=== PATIENT | female | born 2000 | race Caucasian/White ===

== ENCOUNTER 2025-01-05 08:50 | Outpatient (OUT) | payer BC, SELFPAY ==
--- OUTSIDE RECORDS SUMMARY | 2024-12-29 12:30 | XMS_ITS | Encounter Summary ---
Author Organization [facility] Address [address] [place] [address] Care Team Providers Care Window Clerk Name Role Phone Judi Jeffrey MD Primary Care Provider Encounter Details DateTypeDepartmentCare Team (Latest Contact Info)Loixyqxrazl97/23/2025 12:30 PM EDTAncillary Procedure [facility] [address] [place] [address] [place] [address] Missed menses; Positive urine test ([facility]) Social History Tobacco UseTypesPacks/DayYears UsedDateSmoking Tobacco: NeverSmokeless Tobacco: NeverAlcohol UseStandard Drinks/WeekCommentsYes0 (1 standard drink = 0.6 oz pure alcohol)3 or 4 drinks a monthHumiliation, Afraid, Rape, and Kick questionnaire AnswerDate RecordedWithin the last year, have you been afraid of your partner or ex-partner?No08/19/2022Within the last year, have you been humiliated or emotionally abused in other ways by your partner or ex-partner?No08/19/2022 Within the last year, have you been kicked, hit, slapped, or otherwise physically hurt by your partner or ex-partner?No08/19/2022Within the last year, have you been raped or forced to have any kind of sexual activity by your part ner or ex-partner?No08/19/2022Social Connection and Isolation PanelAnswerDate RecordedIn a typical week, how many times do you talk on the phone with family, friends, or neighbors?More than three times a week08/19/2022How often do you get together with friends or relatives?More than three times a week08/19/2022How often do you attend yazdanism or episcopalian services?1 to 4 times per year08/19/2022 Do you belong to any clubs or organizations such as yazdanism groups, unions, fraternal or athletic groups, or school groups?Yes08/19/2022How often do you attend meetings of the clubs or organizations you belong to?More than 4 times per year08/19/2022re you , , , , never , or living with a partner?Patient oiaxwogl49/13/2023UDIT-CAnswerDate RecordedQ1: How often do you have a drink containing alcohol?2-4 times a month08/19/2022Q2: How many drinks containing alcohol do you have on a typical day when you are drinking?1 or Q3: How often do you have six or more drinks on one occasion?Less than lcvwkjm3208/19/2022Overall Financial Resource Strain (CARDIA) AnswerDate RecordedHow hard is it for you to pay for the very basics like food, housing, medical care, and heating?Not hard at all08/19/2022HQ-2AnswerDate RecordedPatient Health Questionnaire-2 Djond270[facility] [place] of Occupational Health - Occupational Stress QuestionnaireAnswerDate RecordedDo you feel stress - tense, restless, nervous, or anxious, or unable to sleep at night because yourmind is troubled all the time - these days?To some robefy3408/19/2022 Exercise Vital SignAnswerDate RecordedOn average, how many days per week do you engage in moderate to strenuous exercise (like a brisk walk)?4 days08/19/2022On average, how many minutes do you engage in exercise at this level?40 min 08/19/2022Hunger Vital SignAnswerDate RecordedWithin the past 12 months, you worried that your food would run out before you got the money to buymore.Never true08/19/2022Within the past 12 months, the food you bought just didn't last and you didn't have money to get more.Never true08/19/2022RAPARE - TransportationAnswerDate RecordedIn the past 12 months, has lack of transportation kept you from medical appointments or from getting medications?No 08/19/2022In the past 12 months, has lack of transportation kept you from meetings, work, or from getting things needed for daily living?No08/19/2022 Housing Stability Vital SignAnswerDate RecordedIn the last 12 months, was there a time when you were not able to pay the mortgage or rent on time?No08/19/2022In the last 12 months, how many places have you lived?In the last 12 months, was there a time when you did not have a steady place to sleep or slept in ashelter (including now)?No08/19/2022EducationAnswerDate RecordedWhat is the highest level of school you have completed or the highest degree you have received?10th grade07/16/2022Estimated Date of DeliveryCommentsYes 6Based on Ultrasound, FHR- 153Sex and Gender InformationValueDate RecordedSex Assigned at BirthNot on fileLegal JxsJfotrk18/15/2023 7:46 PM EDT Gender IdentityNot on fileSexual OrientationNot on filedocumented as of this encounter Plan of Treatment DateTypeDepartmentCare Team (Latest Contact Info)Jnshwylgatd73/24/2025 9:50 AM ESTRoutine NOMAyesha PHAN [address] [place] [phone] Rainer Olivo, DO [address] [facility] [place] [address] 02/27/2025 8:40 AM ESTRoutine NOMAyesha PHAN [address] [place] [phone] Rainer Olivo, [address] [facility] [facility] [address] [place], [place] [phone] 03/01/2025 10:00 AM ESTOffice Visit [facility] [address] [place] [facility] [place] [phone] Soledad Foreman NP [address] [place], [place] [phone] documented as of this encounter Procedures Procedure NamePriorityDate/TimeAssociated DiagnosisCommentsUS OB TRANSVAGINAL Smtpktq3412/29/2024 12:48 PM EDT Missed menses Positive urine test ([facility]) documented in this encounter Results * US OB transvaginal (12/29/2024 12:48 PM EDT)Anatomical RegionLaterality ModalityBodyUltrasoundSpecimen (Source)Anatomical Location / Laterality Collection Method / VolumeCollection TimeReceived Time12/29/2024 3:28 PM EDT Impressions 12/30/2024 7:26 AM EDT Findings consistent with a live intrauterine gestation, current sonographic age of 7 weeks and 4 days resulting in an estimated date of delivery of August 13, 2025 ?? TRANSCRIBED BY: ? ELECTRONICALLY SIGNED BY: Eduardo Sin MD Narrative 12/30/2024 7:26 AM EDT FINDINGS: A single intrauterine gestational sac is present. ??No subchorionic hemorrhage. ??A single pole is present. Normal heart rate at 153 beats per minute. ??Yolk sac also is seen. ?? Current sonographic age is 7 weeks and 4 days based on the crown-rump length measurement of 13mm. ??Based onthis age, current estimated date of delivery is ??August 13, 2025. ??No pelvic fluid or adnexal mass present. ??Cervix ??closed length is 3.8 cm. Procedure Note Eduardo Sin MD - 12/30/2024 FINDINGS: A single intrauterine gestational sac is present. No subchorionichemorrhage. A single pole is present. Normal heart rate at153 beats per minute. Yolk sac also is seen. Current sonographic age is7 weeks and 4 days based on the crown-rump length measurement of 13mm.Based on this age, current estimated date of delivery is August 13, 2025.No pelvic fluid or adnexal mass present. Cervix closed length is 3.8cm. IMPRESSION: Findings consistent with a live intrauterine gestation, currentsonographic age of 7 weeks and 4 days resulting in an estimated date ofdelivery of August 13, 2025 TRANSCRIBED BY: ELECTRONICALLY SIGNED BY: Eduardo Sin MD Authorizing ProviderResult TypeResult StatusCorey Geovani DOIMG OB US PROCEDURES Final Result documented in this encounter Visit Diagnoses Diagnosis Missed menses Positive urine test ([facility]) documented in this encounter Additional Health Concerns AssessmentNoted TimePHQ-9 Depression Total Score: 6011/21/2024 8:00 AM EDT documented as of this encounter Care Teams Team MemberRelationshipSpecialtyStart DateEnd Date Judi Jeffrey MD [address] [place] [address] PCP - GeneralFamily Medicine07/24/22documented as of this encounter
--- OUTSIDE RECORDS SUMMARY | 2024-12-29 13:00 | XMS_ITS | Encounter Summary ---
Author Organization [facility] Address [address] [place] [address] Care Team Providers Care Financial Professional Name Role Phone Judi Jeffrey MD Primary Care Provider [phone] Reason for Visit * ReasonCommentsAmenorrhea Encounter Details DateTypeDepartmentCare Team (Latest Contact Info)Txhodjhmlsm84/23/2025 1:00 PM EDTInitial [facility] [address] [place] [address] [place] [phone] GA: 7w4d Social History Tobacco UseTypesPacks/DayYears UsedDateSmoking Tobacco: NeverSmokeless [...] times a week08/19/2022How often do you attend religious or restorationist services?1 to 4 times per year08/19/2022 Do you belong to any clubs or organizations such as religious groups, unions, fraternal or athletic groups, or school groups?Yes08/19/2022How often do you attend meetings of the clubs or organizations you belong to?More than 4 times per year08/19/2022re you , , , , never , or living with a partner?Patient gbtxsnoh17/13/2023UDIT-CAnswerDate RecordedQ1: How often do you have a drink containing alcohol?2-4 times a month08/19/2022Q2: How many drinks containing alcohol do you have on a typical day when you are drinking?1 or Q3: How often do you have six or more drinks on one occasion?Less than rrbzfvz9808/19/2022Overall Financial Resource Strain (CARDIA) AnswerDate RecordedHow hard is it for you to pay for the very basics like food, housing, medical care, and heating?Not hard at all08/19/2022HQ-2AnswerDate RecordedPatient Health Questionnaire-2 Xkmsr461Finmoab regional hospital [place] of Occupational Health - Occupational Stress QuestionnaireAnswerDate RecordedDo you feel stress - tense, restless, nervous, or anxious, or unable to sleep at night because yourmind is troubled all the time - these days?To some iowdct0708/19/2022 Exercise Vital SignAnswerDate RecordedOn average, how many [...] you have received?10th grade07/16/2022Estimated Date of DeliveryCommentsYes 08/13/2025ased on Ultrasound, FHR- 153Sex and Gender InformationValueDate RecordedSex Assigned at BirthNot on fileLegal IuzKkujhh32/15/2023 7:46 PM EDT Gender IdentityNot on fileSexual OrientationNot on filedocumented as of this encounter Last Filed Vital Signs Vital SignReadingTime TakenCommentsBlood Jmelmaes292/7010 1:22 PM EDT Pulse--Temperature--Respiratory Rate--Oxygen Saturation--Inhaled Oxygen Concentration--Kmjlsz081 kg (245 lb 9.6 oz)12/29/2024 1:22 PM EDTHeight--Body Mass Index36.2709 8:04 AM EDTdocumented in this encounter Progress Notes * Vanessa Neff LPN - 12/29/2024 1:00 PM EDT Reason for Appointment: Patient ID: Lindy Sam is a 24 y.o. female who presents for Amenorrhea Patient presents today for a Nurse OB Intake appointment. Patient is 7w4d with a Estimated Date of Delivery: 08/13/25 OB History Para Term AB Living 1 0 0 0 0 0 SAB IAB Ectopic Multiple Live Births 0 0 0 0 0 # Outcome Date GA Lbr Anam/2nd Weight Sex Type Anes PTL Lv 1 Current Current Medications: has a current medication list which includes the following prescription(s): flonase allergy relief,ondansetron odt, and sertraline. Medical History: Active Ambulatory Problems Diagnosis Date Noted Adjustment disorder with depressed mood 07/09/2022 Allergic rhinitis due to allergen 07/09/2022 Allergic rhinitis due to animal (cat) (dog) hair and dander 07/09/2022 Anxiety 07/09/2022 Dysmenorrhea 07/09/2022 Sinusitis 07/09/2022 Iron deficiency anemia 07/09/2022 Irregular menses 07/09/2022 Menstrual cramps 07/09/2022 Menstrual migraine without status migrainosus, not intractable 07/09/2022 Orthostatic hypotension 07/09/2022 Patellofemoral disorder of left knee 07/09/2022 Patellofemoral disorders, right knee 07/09/2022 Allergic rhinitis caused by feathers 10/05/2017 Tinnitus of both ears 07/29/2022 Allergic rhinitis 10/05/2017 Allergic rhinitis due to animal hair and dander 10/26/2017 Menstrual disorder 04/07/2018 Menstrual migraine 07/16/2016 POTS (postural orthostatic tachycardia syndrome) 07/29/2022 Disorder of right patellofemoral joint 09/19/2016 Frontal sinusitis 02/25/2018 Mild episode of recurrent major depressive disorder 08/11/2022 CHRIS (generalized anxiety disorder) 08/11/2022 Acute severe exacerbation of mild persistent asthma (HCC) 12/22/2024 Resolved Ambulatory Problems Diagnosis Date Noted No Resolved Ambulatory Problems Past Medical History: Diagnosis Date ADHD (attention deficit hyperactivity disorder) 08/08/2022 Broken bones Shingles Family History Problem Relation Name Age of Onset Goiter Mother Jazmin Polycystic ovary syndrome Mother Jazmin Hypertension Mother Jazmin Miscarriages / Stillbirths Mother Jazmin Allergies Father Sachin addiction to pain killers after an accident Hypertension Father Sachin Alcohol abuse Maternal Grandfather Gera Depression Paternal Grandmother Disne Alcohol abuse Mother's Brother Hollis Social History Tobacco Use Smoking status: Never Smokeless tobacco: Never Substance Use Topics Alcohol use: Yes Comment: 3 or 4 drinks a month Drug use: Never No past surgical history on file. Allergies Allergen Reactions Sulfa Antibiotics Rash Vitals: Estimated body mass index is 36.77 kg/m?? as calculated from the following: Height as of 11/21/24: 5' 9 . Weight as of 11/21/24: 249 lb. BP: Patient's last menstrual period was 10/22/2024. Assessment/Plan Diagnoses and all orders for this visit: Iron deficiency anemia, unspecified iron deficiency anemia type Missed menses - Type and screen; Future - ABO/Rh; Future - CBC and differential - Hemoglobin A1c - RPR - Rubella antibody, IgG - Hepatitis B surface antigen - Hepatitis C antibody - HIV-1 and HIV-2 antibodies - Urine culture - POCT , urine manually resulted - POCT urinalysis dipstick manually resulted , unspecified gestational age ([facility]) - Type and screen; Future - ABO/Rh; Future - CBC and differential - Hemoglobin A1c - RPR - Rubella antibody, IgG - Hepatitis B surface antigen - Hepatitis C antibody - HIV-1 and HIV-2 antibodies - Rapid drug screen, urine; Future Encounter for supervision of normal first in first trimester ([facility]) - Rapid drug screen, urine; Future Nurse Note: OB Intake: Patient presents today for first OB visit. Patients history has been reviewed in great detail including any potential risks. Patient signed consent forms and patient desires testing in both trimesters. Patient currently has no complaints and has been advised to drink 6-8 glasses of water a day, eatno raw or undercooked meat, and stay away from [facility]. Patient has also been advised to not change litter boxes and eat 6 small meals a day. Patient has been consulted regarding the do's and don'ts ofpregnancy. Patient was given labs and all questions and concerns were answered. Patient was given Burton labs to have completed at 9 weeks at [facility]. Follow Up: Patient is to return in 4 weeks for routine OB appointment. Follow Up: Patient is to have labs drawn at directed and return to office for initial OB appointment with provider. Patient may call office as needed with any concerns or questions. Nurse Visit Completed by: Vanessa Neff LPN documented in this encounter Plan of Treatment DateTypeDepartmentCare Team (Latest Contact Info)Eoaykisanmg76/ 9:50 AM ESTRoutine [facility] WILKESN [address] [place] [address] [place] [phone] Rainer Olivo, [address] [place] [address] 02/27/2025 8:40 AM ESTRoutine [facility] Del WOLFEGYN [address] [facility] [place] [phone] Rainer Olivo, DO [address] [place] [address] 03/01/2025 10:00 AM ESTOffice Visit [facility] [address] [place] [phone] Soledad Foreman NP [address] [place], [place] [phone] NameTypePriorityAssociated DiagnosesOrder ScheduleType and screenLabRoutine Missed menses , unspecified gestational age ([facility]) Expected: 12/29/2024 (Approximate), Expires: 6ABO/RhLabRoutine Missed menses , unspecified gestational age ([facility]) Expected: 12/29/2024 (Approximate), Expires: 6CBC and differentialLab Routine Missed menses , unspecified gestational age ([facility]) Ordered: 12/29/2024Hemoglobin V1mUswGprxrwg Missed menses , unspecified gestational age ([facility]) Ordered: 12/29/2024RPRLabRoutine Missed menses , unspecified gestational age ([facility]) Ordered: 12/29/2024Rubella antibody, IgGLabRoutine Missed menses , unspecified gestational age ([facility]) Ordered: 12/29/2024Hepatitis B surface antigenLabRoutine Missed menses , unspecified gestational age ([facility]) Ordered: 12/29/2024Hepatitis C antibodyLabRoutine Missed menses , unspecified gestational age ([facility] Ordered: 12/29/2024HIV-1 and HIV-2 antibodiesLabRoutine Missed menses , unspecified gestational age ([facility]) Ordered: 12/29/2024Urine cultureMicrobiologyRoutine Missed menses Ordered: 12/29/2024Rapid drug screen, urineLabRoutine , unspecified gestational age ([facility]) Encounter for supervision of normal first in first trimester ([facility]) Expected: 12/29/2024 (Approximate), Expires: 12/29/2025documented as of this encounter Procedures Procedure NamePriorityDate/TimeAssociated DiagnosisCommentsPOCT , URINE Sknhome0712/29/2024 1:21 PM EDT Missed menses POCT URINALYSIS LNOFWPHGTjrewsf09/23/2025 1:21 PM EDT Missed menses documented in this encounter Results * POCT urinalysis dipstick manually resulted (12/29/2024 1:21 PM EDT)Component ValueRef RangeTest MethodAnalysis TimePerformed AtPathologist SignatureColor, UAYellowClarity, UAClearGlucose, UANegativeNegative - 2000(110) ++++ mg/dL Bilirubin, UANegativeNegative - 4(70) +++ mg/dLKetones, UANegativeNegative - 160(16) ++++ mg/dLSpec Grav, UA1.0151 - 1.03Blood, UANegativeNegative - 50 Gerardo/mcLpH, UA6.05 - 9Protein, UANegativeNegative - 2000(20) ++++ mg/dL Urobilinogen, UA1.00.2 - 12 mg/dLLeukocytes, UANegativeNegative - 500+++ Stephanie/mcLNitrite, UANegativeNegative - PositiveSpecimen (Source)Anatomical Location / LateralityCollection Method / VolumeCollection TimeReceived Time Urine12/29/2024 1:21 PM EDT Narrative Authorizing ProviderResult TypeResult StatusCorey Geovani DOPOINT OF CARE TEST ENTER/EDIT ORDERABLESFinal Result * (ABNORMAL) POCT , urine manually resulted (12/29/2024 1:21 PM EDT) ComponentValueRef RangeTest MethodAnalysis TimePerformed AtPathologist SignaturePreg Test, UrPositiveNegativeSpecimen (Source)Anatomical Location / LateralityCollection Method / VolumeCollection TimeReceived TimeUrine 12/29/2024 1:21 PM EDT Narrative Authorizing ProviderResult TypeResult StatusCorey Geovani DOPOINT OF CARE TEST ENTER/EDIT ORDERABLESFinal Result documented in this encounter Visit Diagnoses Diagnosis Iron deficiency anemia, unspecified iron deficiency anemia type Missed menses , unspecified gestational age ([facility]) Encounter for supervision of normal first in first trimester ([facility]) documented in this encounter Additional Health Concerns AssessmentNoted TimePHQ-9 Depression Total Score: 6011/21/2024 8:00 AM EDT documented as of this encounter Care Teams Team MemberRelationshipSpecialtyStart DateEnd Date Judi Jeffrey MD [address] [place] [address] PCP - GeneralFamily Medicine07/24/22documented as of this encounter
--- OUTSIDE RECORDS SUMMARY | 2025-01-05 08:58 | XMS_ITS | Clinical Summary ---
Author Organization [facility] Address [address] [place] [address] Care Team Providers Care Mayonnaise Mixer Name Role Phone Judi Jeffrey MD Primary Care Provider [phone] Allergies Active AllergyReactionsCriticalityNoted DateCommentsSulfa AntibioticsRashMedium 07/22/2016 Medications MedicationSigDispense QuantityRefillsLast FilledStart DateEnd DateStatus Flonase Allergy Relief 50 MCG/ACT nasal spray Irrigate with 50 mcg as nwxquvfd12/30/2024ctive sertraline (Zoloft) 25 MG tablet Indications:CHRIS (generalized anxiety disorder),Mild episode of recurrent major depressive disorderTake 1 tablet (25 mg) by mouth Daily 30 tablet 503/ctive ondansetron ODT (Zofran-ODT) 4 MG disintegrating tablet Indications:Nausea and vomiting in ([facility])Take 1 tablet (4 mg) by mouth every 6 (six) hours if needed for nausea or vomiting 30 tablet 5Active Active Problems ProblemNoted DateDiagnosed DateAcute severe exacerbation of mild persistent jygpjf0212/22/2024Mild episode of recurrent major depressive xprcvayc35/05/2023 Assessment & Plan (11/21/2024 9:02 AM EDT): Orders: FLUoxetine (PROzac) 10 MG capsule; Take 1 capsule (10 mg) by mouth Daily Continue with current treatment. Assessment & Plan (10/26/2024 6:49 PM EDT): Orders: FLUoxetine (PROzac) 10 MG capsule; Take 1 capsule (10 mg) by mouth Daily CHRIS (generalized anxiety disorder)08/11/2022 Assessment & Plan (11/21/2024 9:02 AM EDT): Orders: FLUoxetine (PROzac) 10 MG capsule; Take 1 capsule (10 mg) by mouth Daily Continue with current treatment. Assessment & Plan (10/26/2024 6:49 PM EDT): Orders: FLUoxetine (PROzac) 10 MG capsule; Take 1 capsule (10 mg) by mouth Daily Tinnitus of both ears07/29/2022OTS (postural orthostatic tachycardia syndrome) 07/29/2022djustment disorder with depressed mood07/09/2022llergic rhinitis due to bqestjji99/03/2023llergic rhinitis due to animal (cat) (dog) hair and dander 07/09/20226301Mecjirm42/03/0552Rfimnbelnxsa13/03/3917Ncbotszys93/03/2023Iron deficiency yzzebf2207/09/2022Irregular eanhgf0307/09/2022Menstrual guixkw3107/09/2022 Menstrual migraine without status migrainosus, not djizzfokxdh45/03/2023 Orthostatic sskuexzhfvt00/03/2023atellofemoral disorder of left knee07/09/2022 Patellofemoral disorders, right knee07/09/2022Menstrual wthzebol44/30/2019 Frontal xpnaguzuj68/20/2018Allergic rhinitis due to animal hair and dander 10/26/2017Allergic rhinitis caused by racfejpj19/30/2018Allergic rhinitis 10/05/2017Disorder of right patellofemoral joint09/19/2016Menstrual migraine 07/16/2016Estimated Date of KveycwnhBrtrvyamAya06/07/2026ased on Ultrasound, [facility]- 153 Encounters DateTypeDepartmentCare KudvHhvsyzphaea06/23/2025 1:00 PM EDTInitial [facility] [address] [place] [address] [place] [address] [place]: 7w4d12/29/2024 12:30 PM EDTAncillary Procedure [facility] [address] [place] [place] [address] Missed menses; Positive urine test ([facility])12/25/20246525Ebzgos03/16/2025Travel 12/06/2024Telephone [facility] [address] [place] [address] Jacque Rogers MA 12/02/2024[facility] [address] [place] [facility] [place] [address] Soledad Foreman, MILLA CHRIS (generalized anxiety disorder) (Primary Dx); Mild episode of recurrent major depressive vgahlonf91/26/2025Telephone [facility] [address] [place] [address] Judi Jeffrey MD 11/21/2024 8:00 AM EDTOffice Visit [facility] [address] [place] [facility] [place] [address] Soledad Foreman, MILLA CHRIS (generalized anxiety disorder) ; Mild episode of recurrent major depressive gukvzczj65/15/2025Refill [facility] [address] [facility] [place] [address] Soledad Foreman, MILLA CHRIS (generalized anxiety disorder) ; Mild episode of recurrent major depressive yqctfepw10/15/2025amboo flowsheet [facility] [address] [place] [address] Soledad Foreman GAUGE AND INSTRUMENT INSPECTOR 11/21/20248193Vwbvge40/20/2025 6:00 PM EDTOffice Visit [facility] [address] [place] [address] Soledad Foreman, MILLA CHRIS (generalized anxiety disorder) (Primary Dx); Mild episode of recurrent major depressive ghhraftv91/20/2025amboo flowsheet [facility] [address] [place] [facility] [place] [address] Soledad Foreman NP 10/26/20243510Apmxtx48/17/2025Travelfrom Last 3 Months Immunizations ImmunizationAdministration DatesNext DueDTaP / IPV2001,2001, 2001DTaP, Jvgikodyhyb82/10/2007,08/22/2002HPV 9-Fhiwuf0802/29/2016, 10/22/2015,08/22/2015Hep A, ped/adol, 2 dose02/29/2016,08/22/2015Hep B, Adolescent or Xxpnnfsni94/10/2021,12/12/2020,01/14/2002,2001,2001Hep B, adult06/12/2021HiB, lrcreutnfrh76/11/2002,2001,2001Hib / Hep B 08/22/2002IPV08/22/2002Influenza, injectable, quadrivalent, preservative free 11/23/2021,02/03/2021,12/10/2019,01/23/2017Influenza, seasonal, injectable 12/31/2013,03/25/2013Influenza, seasonal, injectable, preservative free 12/24/2011,12/18/2010MMR10/16/2006,06/03/2002Meningococcal ZNH1F9410/05/2017, 11/27/2014Novel mxuucbdkg-V5Z3-14, preservative-free02/17/2009,01/04/2009PPD Test10/01/2020Tdap09/01/2013 Family History Medical HistoryRelationNameCommentsAllergiesFatherJohnaddiction to pain killers after an accidentHypertensionFatherJohnAlcohol abuseMaternal GrandfatherJim GoiterMotherBrendaHypertensionMotherBrendaMiscarriages / StillbirthsMotherBrenda Polycystic ovary syndromeMotherBrendaAlcohol abuseMother's BrotherBrian DepressionPaternal GrandmotherDisneRelationNameStatusCommentsBrotherAliveFather JohnAliveMaternal GrandfatherJimMotherBrendaAliveMother's BrotherBrianPaternal GrandmotherDisne Social History Tobacco UseTypesPacks/DayYears UsedDateSmoking Tobacco: NeverSmokeless Tobacco: Never Tobacco Cessation:Counseling Given: Not Answered Alcohol UseStandard Drinks/WeekCommentsYes0 (1 standard drink = 0.6 [...] times a week08/19/2022How often do you attend adventism or anglican services?1 to 4 times per year08/19/2022 Do you belong to any clubs or organizations such as adventism groups, unions, fraternal or athletic groups, or school groups?Yes08/19/2022How often do you attend meetings of the clubs or organizations you belong to?More than 4 times per year08/19/2022re you , , , , never , or living with a partner?Patient wwvdappu42/13/2023UDIT-CAnswerDate RecordedQ1: How often do you have a drink containing alcohol?2-4 times a month08/19/2022Q2: How many drinks containing alcohol do you have on a typical day when you are drinking?1 or Q3: How often do you have six or more drinks on one occasion?Less than yjhbapo7308/19/2022Overall Financial Resource Strain (CARDIA) AnswerDate RecordedHow hard is it for you to pay for the very basics like food, housing, medical care, and heating?Not hard at all08/19/2022HQ-2AnswerDate RecordedPatient Health Questionnaire-2 Bjrnj339[facility] [place] [facility] - Occupational Stress QuestionnaireAnswerDate RecordedDo you feel stress - tense, restless, nervous, or anxious, or unable to sleep at night because yourmind is troubled all the time - these days?To some qkncfe1008/19/2022 Exercise Vital SignAnswerDate RecordedOn average, how many [...] InformationValueDate RecordedSex Assigned at BirthNot on fileLegal DorXsksyl26/15/2023 7:46 PM EDT Gender IdentityNot on fileSexual OrientationNot on file Last Filed Vital Signs Vital SignReadingTime TakenCommentsBlood Zojnivir800/7010 1:22 PM EDT Hbnfl332611/21/2024 8:04 AM ARVCktpwsfuahk73.3 ??C (97.3 ??F)10/26/2024 5:46 PM EDTRespiratory Tcek535111/21/2024 8:04 AM EDTOxygen Nfownmsnvt86%11/21/2024 8:04 AM EDTInhaled Oxygen Concentration--Lprrgi801 kg (245 lb 9.6 oz)12/29/2024 1:22 PM WJITlunel668.3 cm (5' 9 )11/21/2024 8:04 AM EDTBody Mass Index36.27011/21/2024 8:04 AM EDT Plan of Treatment DateTypeDepartmentCare Team (Latest Contact Info)Reqmvupuqsl13/24/2025 9:50 AM ESTRoutine NOMAyesha PHAN [address] [place] [address] [place] [address] Rainer Olivo [address] [place], [place] [address] 02/27/2025 8:40 AM ESTRoutine MECHELLE PHAN [address] [place] [address] [place] [address] Rainer Olivo [address] [place] [address] 03/01/2025 10:00 AM ESTOffice Visit [facility] [address] [facility] [place] [address] Soledad Foreman NP [address] [place] [address] Health MaintenanceDue DateLast DoneCommentsVaricella Vaccines (1 of 2 - 13+ 2- dose series)2014Meningococcal B Vaccine (1 of 2 - Standard)2017 Pneumococcal Vaccine: Pediatrics (0 to 5 Years) and At-Risk Patients (6 to 64 Years) (1 of 2 - PCV)1DTaP/Tdap/Td Vaccines (7 - Td or Tdap)09/02/2023 09/01/2013, 10/16/2006, 08/22/2002, Additional history existsCOVID-19 Vaccine ( - season)5104/05/2020, 07/07/2020, 06/11/2020HIB Vaccines Vqgvpafej84/16/2003, 2001, 2001, Additional history existsIPV QuncesxrBtmazuvcf33/16/2003, 2001, 2001, Additional history exists MMR PdkvxqibUusmcuxkw37/10/2007, 06/03/2002HPV ZkytqubrZcyuyjekj20/23/2016, 10/22/2015, 08/22/2015Hepatitis A KudgqckxHlhylwjex79/23/2016, 08/22/2015 Hepatitis B ZqueurxqGzdadosuf62/06/2022, 01/16/2021, 12/12/2020, Additional history existsInfluenza LpzbnlsMvhjcozpt78/27/2025, 11/23/2021, 02/03/2021, Additional history existsMeningococcal VaccineAged OutNo longer eligible based on patient's age to complete this topicRotavirus VaccinesAged OutNo longer eligible based on patient's age to complete this topic Goals GoalPatient Goal TypeAssociated ProblemsRecent ProgressPatient-Stated?Author Reminders Care PlanOB RemindersNoOpen Scheduling, Background Procedures Procedure NamePriorityDate/TimeAssociated DiagnosisCommentsPOCT URINALYSIS FRLAOALGMstfhue89/23/2025 1:21 PM EDT Missed menses POCT , CCJYMKbshvlf25/23/2025 1:21 PM EDT Missed menses US OB DMNKTYGGRVDUZhpfsyu33/23/2025 12:48 PM EDT Missed menses Positive urine test ([facility]) from Last 3 Months Results * (ABNORMAL) POCT , urine manually resulted (12/29/2024 1:21 PM EDT) ComponentValueRef RangeTest MethodAnalysis TimePerformed AtPathologist SignaturePreg Test, UrPositiveNegativeSpecimen (Source)Anatomical Location / LateralityCollection Method / VolumeCollection TimeReceived TimeUrine 12/29/2024 1:21 PM EDT Narrative Authorizing ProviderResult TypeResult StatusCorey Geovani DOPOINT OF CARE TEST ENTER/EDIT ORDERABLESFinal Result * POCT urinalysis dipstick manually resulted (12/29/2024 [...] OF CARE TEST ENTER/EDIT ORDERABLESFinal Result * US OB transvaginal (12/29/2024 12:48 PM [...] Sin MD Authorizing ProviderResult TypeResult StatusCorey Geovani [facility] OB US PROCEDURES Final Result from Last 3 Months Additional Health Concerns Active ProblemsNoted DateDiagnosed DateOB Gierasdth04/27/2025 Insurance Care Teams Team MemberRelationshipSpecialtyStart DateEnd Date Judi Jeffrey MD [address] [place] [address] PCP - GeneralFamily Medicine07/24/22
--- OUTSIDE RECORDS SUMMARY | 2025-01-05 08:58 | XMS_ITS | Clinical Summary ---
Author Organization [facility] Address [id number] [address] [place] [address] Care Team Providers Care Pathology Assistant Name Role Phone Judi Jeffrey MD Primary Care Provider [phone] Allergies Active AllergyReactionsCriticalityNoted DateCommentsSulfa (Sulfonamide Antibiotics)AlmjOxcgbw09/16/2017 Medications MedicationSigDispense QuantityRefillsLast FilledStart DateEnd DateStatus norethindrone ac-eth estradiol (FEMHRT 03/13) 1-5 mg-mcg tablet Take by mouth daily.Active metoprolol succinate XL (TOPROL-XL) 25 mg 24 hr tablet Take 25 mg by mouth once daily.06/19/2017Active amoxicillin (AMOXIL) 500 mg capsule Take 500 mg by mouth 2 (two) times a day.Active ibuprofen (MOTRIN) 800 mg tablet Take 1 tablet (800 mg total) by mouth in the morning and 1 tablet (800 mg total) at noon and 1 tablet (800 mg total) before bedtime. 21 tablet 09/06/2021ctive Additional Information Patient not taking.Reported on 01/28/2023 acetaminophen (TYLENOL EXTRA STRENGTH) 500 mg tablet Take 2 tablets (1,000 mg total) by mouth every 6 (six) hours as needed for pain. 30 tablet 09/06/2021ctive Additional Information Patient not taking.Reported on 01/28/2023 cyclobenzaprine (FLEXERIL) 10 mg tablet Take 1 tablet (10 mg total) by mouth 2 (two) times a day as needed for muscle spasms. 10 tablet 09/06/2021ctive Additional Information Patient not taking.Reported on 01/28/2023 levonorgestreL (LILETTA) 20.4 mcg/24 hrs (8 yrs) 52 mg intrauterine device IUD LilettaActive methylPREDNISolone (MEDROL, JANA,) 4 mg tablet Indications:BronchitisTake 1 tablet (4 mg total) by mouth in the morning. follow package directions. 21 tablet 11/30/2022ctive Additional Information Patient not taking.Reported on 12/07/2022 benzonatate (TESSALON PERLES) 100 mg capsule Indications:BronchitisTake 2 capsules (200 mg total) by mouth 3 (three) times a day as needed for cough. 60 capsule 11/30/2022ctive Additional Information Patient not taking.Reported on 01/28/2023 uplmekysrnzdfrr-qcizlovxw-BG 2-30-10 mg/5 mL syrup Indications:Acute coughTake 5 mL by mouth 4 (four) times a day as needed for congestion, cough or allergies. 100 mL 12/07/2022ctive Additional Information Patient not taking.Reported on 01/28/2023 famotidine (PEPCID) 20 mg tablet Indications:Acute coughTake 1 tablet (20 mg total) by mouth nightly as needed for heartburn. 15 tablet 12/07/2022ctive Additional Information Patient not taking.Reported on 01/28/2023 magnesium 30 mg tablet Take 1 tablet (30 mg total) by mouth in the morning.Active cyanocobalamin (vitamin B-12) 50 mcg tablet Take 1 tablet (50 mcg total) by mouth in the morning.Active cholecalciferol, vitamin D3, (VITAMIN D3 ORAL) Take by mouth.Active Active Problems ProblemNoted DateDiagnosed DatePOTS (postural orthostatic tachycardia syndrome) Family History Medical HistoryRelationNameCommentsDrug abuseFatherNARCOTIC ADDICTION HypertensionFatherAlcohol abuseMaternal GrandfatherHypertensionMotherPolycystic ovary syndromeMotherThyroid diseaseMotherDepressionPaternal GrandmotherRelation NameStatusCommentsFatherAliveMaternal GrandfatherMotherAlivePaternal Grandmother Social History Tobacco UseTypesPacks/DayYears UsedDateSmoking Tobacco: NeverSmokeless Tobacco: Never Tobacco Cessation:Counseling Given: Not Answered Alcohol UseStandard Drinks/WeekCommentsYes0 (1 standard drink = 0.6 oz pure alcohol)ChildcareAnswerDate MvqlbxmkMsmqdtdlhLonbywo94/11/2019EmploymentAnswer Date KnpzivflVkikekdyzzEnhddxj11/11/2019Hunger ScreeningAnswerDate Recorded Within the past 12 months we worried whether our food would run out before we got money to buy more.Never True09/15/2022Within the past 12 months the food we bought just didn't last and we didn't have money to get more.Never True 3Purpose - LifeAnswerDate RecordedPurpose and direction in lifeUnknown 1CommentsNoSex and Gender InformationValueDate RecordedSex Assigned at BirthNot on fileLegal DdpZtfznc19/04/2015 5:03 PM EDTGender Identity Not on fileSexual OrientationNot on file Last Filed Vital Signs Vital SignReadingTime TakenCommentsBlood Ybonlayx503/7703 4:57 PM EDT Kliqx364106/03/2023 4:57 PM XDKGsbeweldmux89 ??C (98.6 ??F)06/03/2023 4:57 PM EDT Respiratory Zryw992006/03/2023 4:57 PM EDTOxygen Lwuucoflvr252%06/03/2023 4:57 PM EDTInhaled Oxygen Concentration--Qzkngh113.6 kg (246 lb)06/03/2023 4:57 PM EDT Fyqqgt200.3 cm (5' 9 )06/03/2023 4:57 PM EDTBody Mass Index36.33006/03/2023 4:57 PM EDT Plan of Treatment Health MaintenanceDue DateLast DoneCommentsDepression Vvohbqfui31/12/2014Pap Smear3DTaP,Tdap and Td Vaccines (7 - Td or Tdap)/, 10/16/2006, 08/22/2002, Additional history existsAdult BMI Cblxqnmrh38/27/2025 06/03/2023Tobacco Pahfehnmq15/27/156463/4COVID-19 Vaccine (4 - 2025-26 season)5104/05/2020, 07/07/2020, 06/11/2020Influenza Ldfmkfo3611/07/2024 03/16/2023, 11/23/2021, 02/03/2021, Additional history exists Medical Devices Not on file Insurance Care Teams Team MemberRelationshipSpecialtyStart DateEnd Judi Jeffrey MD PCP - GeneralFamily Medicine07/21/16
--- OUTSIDE RECORDS SUMMARY | 2025-01-05 08:58 | XMS_ITS | Encounter Summary ---
Author Organization [facility] Address [address] [place] [address] Care Team Providers Care Alarm Technician Name Role Phone Judi Jeffrey MD Primary Care Provider [phone] Encounter Details DateTypeDepartmentCare Team (Latest Contact Info)Pomonkvdppg45/19/2025Travel Social History Tobacco UseTypesPacks/DayYears UsedDateSmoking Tobacco: NeverSmokeless [...] times a week08/19/2022How often do you attend mosque or confucianist services?1 to 4 times per year08/19/2022 Do you belong to any clubs or organizations such as mosque groups, unions, fraternal or athletic groups, or school groups?Yes08/19/2022How often do you attend meetings of the clubs or organizations you belong to?More than 4 times per year08/19/2022re you , , , , never , or living with a partner?Patient onwdwbnk01/13/2023UDIT-CAnswerDate RecordedQ1: How often do you have a drink containing alcohol?2-4 times a month08/19/2022Q2: How many drinks containing alcohol do you have on a typical day when you are drinking?1 or Q3: How often do you have six or more drinks on one occasion?Less than swybnov6208/19/2022Overall Financial Resource Strain (CARDIA) AnswerDate RecordedHow hard is it for you to pay for the very basics like food, housing, medical care, and heating?Not hard at all08/19/2022HQ-2AnswerDate RecordedPatient Health Questionnaire-2 Rexec400Finmountain point medical center [place] of [facility] - Occupational Stress QuestionnaireAnswerDate RecordedDo you feel stress - tense, restless, nervous, or anxious, or unable to sleep at night because yourmind is troubled all the time - these days?To some xibwqz7108/19/2022 Exercise Vital SignAnswerDate RecordedOn average, how many [...] or the highest degree you have received?10th grade07/16/2022CommentsNoSex and Gender InformationValue Date RecordedSex Assigned at BirthNot on fileLegal NbrJbdzek37/15/2023 7:46 PM EDTGender IdentityNot on fileSexual OrientationNot on filedocumented as of this encounter Plan of Treatment DateTypeDepartmentCare Team (Latest Contact Info)Hgktdlmmhmc65/24/2025 9:50 AM ESTRoutine NOMAyesha PHAN [address] [place] [address] [place] [address] Rainer Olivo, DO [address] [facility] [place] [address] 02/27/2025 8:40 AM ESTRoutine MECHELLE PHAN [address] [place] [address] [place] [phone] Rainer Olivo, DO [address] [facility] [place] [address] 03/01/2025 10:00 AM ESTOffice Visit [facility] [address] [place] [address] Soledad Foreman NP [address] [place] [address] documented as of this encounter Visit Diagnoses Not on filedocumented in this encounter Additional Health Concerns AssessmentNoted TimePHQ-9 Depression Total Score: 6011/21/2024 8:00 AM EDT documented as of this encounter Care Teams Team MemberRelationshipSpecialtyStart DateEnd Date Judi Jeffrey MD [address] [place] [address] PCP - GeneralFamily Medicine07/24/22documented as of this encounter
--- OUTSIDE RECORDS SUMMARY | 2025-01-05 08:58 | XMS_ITS | Clinical Summary ---
Author Organization [facility] Address [address] [facility], [address] [place] [address] Care Team Providers Care Linoleum Tile Floor Layer Name Role Phone Judi Jeffrey MD Primary Care Provider [phone] Allergies Active AllergyReactionsCriticalityNoted DateCommentsSulfa AntibioticsRashMedium 07/22/2016 Medications MedicationSigDispense QuantityRefillsLast FilledStart DateEnd DateStatus metoprolol succinate (TOPROL XL) 25 MG extended release tablet Take 25 mg by mouth dbklg385Active JULEBER 0.15-30 MG-MCG per tablet Active valACYclovir (VALTREX) 1 g tablet Active Active Problems No known active problems Family History Medical HistoryRelationNameCommentsNo Known ProblemsBrotherHigh Blood Pressure FatherHeart AttackMaternal GrandfatherNo Known ProblemsMaternal GrandmotherHigh Blood PressureMotherHigh Blood PressurePaternal GrandmotherRelationNameStatus CommentsBrotherAliveFatherAliveMaternal GrandfatherAliveMaternal Grandmother AliveMotherAlivePaternal GrandfatherDeceasedPaternal GrandmotherAlive Social History Tobacco UseTypesPacks/DayYears UsedDateSmoking Tobacco: Never Assessed CommentsUnknownSex and Gender InformationValueDate RecordedSex Assigned at Not on fileLegal FrqSwvqan25/10/2013 6:34 PM ESTGender IdentityNot on fileSexual OrientationNot on file Last Filed Vital Signs Vital SignReadingTime TakenCommentsBlood Dnokplwz475/6505 2:45 PM EDT Cjrek6240 2:45 PM EDTTemperature--Respiratory Rate--Oxygen Uflfdupvax56% 08/04/2017 2:33 PM EDTInhaled Oxygen Concentration--Xcljcx22.7 kg (171 lb 6.4 oz)08/04/2017 2:33 PM KSSQgrwsa951 cm (5' 8.11 )08/04/2017 2:33 PM EDTBody Mass Index25.98008/04/2017 2:33 PM EDT Plan of Treatment Not on file Insurance Care Teams Team MemberRelationshipSpecialtyStart DateEnd Judi Jeffrey MD [address] [place] [address] PCP - [facility]08/04/17
--- OUTSIDE RECORDS SUMMARY | 2025-01-05 08:58 | XMS_ITS | Encounter Summary ---
Author Organization [facility] Address [address] [place] [address] Care Team Providers Care Figure Model Name Role Phone Judi Jeffrey MD Primary Care Provider [phone] Encounter Details DateTypeDepartmentCare Team (Latest Contact Info)Erryuvlqzrg23/16/2025Travel Social History Tobacco UseTypesPacks/DayYears UsedDateSmoking Tobacco: NeverSmokeless [...] times a week08/19/2022How often do you attend buddhist or catholic services?1 to 4 times per year08/19/2022 Do you belong to any clubs or organizations such as buddhist groups, unions, fraternal or athletic groups, or school groups?Yes08/19/2022How often do you attend meetings of the clubs or organizations you belong to?More than 4 times per year08/19/2022re you , , , , never , or living with a partner?Patient llrriiwj71/13/2023UDIT-CAnswerDate RecordedQ1: How often do you have a drink containing alcohol?2-4 times a month08/19/2022Q2: How many drinks containing alcohol do you have on a typical day when you are drinking?1 or Q3: How often do you have six or more drinks on one occasion?Less than jadfvqr6208/19/2022Overall Financial Resource Strain (CARDIA) AnswerDate RecordedHow hard is it for you to pay for the very basics like food, housing, medical care, and heating?Not hard at all08/19/2022HQ-2AnswerDate RecordedPatient Health Questionnaire-2 [id number] [place] [facility] Occupational Health - Occupational Stress QuestionnaireAnswerDate RecordedDo you feel stress - tense, restless, nervous, or anxious, or unable to sleep at night because yourmind is troubled all the time - these days?To some wzitpy6508/19/2022 Exercise Vital SignAnswerDate RecordedOn average, how many [...] Date RecordedSex Assigned at BirthNot on fileLegal FmcLpjpwf66/15/2023 7:46 PM EDTGender IdentityNot on fileSexual OrientationNot on filedocumented as of this encounter Plan of Treatment DateTypeDepartmentCare Team (Latest Contact Info)Yrgalycknjo01/24/2025 9:50 AM ESTRoutine NOMAyesha PHAN [address] [place] [address] [place] [address] Rainer Olivo, DO [address] [facility] [place] [address] 02/27/2025 8:40 AM ESTRoutine MECHELLE PHAN [address] [place] [address] [place] [phone] Rainer Olivo, DO [address] [facility] [place] [address] 03/01/2025 10:00 AM ESTOffice Visit [facility] [address] [place] [phone] Soledad Foreman NP [address] [place] [address] documented as of this encounter Visit Diagnoses Not on filedocumented in this encounter Additional Health Concerns AssessmentNoted TimePHQ-9 Depression Total Score: 6011/21/2024 8:00 AM EDT documented as of this encounter Care Teams Team MemberRelationshipSpecialtyStart DateEnd Date Judi Jeffrey MD [address] [place] [address] PCP - GeneralFamily Medicine07/24/22documented as of this encounter
[2025-01-05 09:39] LABS: Hematocrit 41.0 % (36.0-48.0); Hemoglobin 13.8 g/dL (12.0-16.0); Immature Granulocytes Abs Auto 0.01 10^3/uL (0.00-0.03); Immature Granulocytes Pct Auto 0.2 % (0.0-0.5); Lymphocytes Absolute Auto 1.9 10^3/uL (1.2-3.8); Mean Corpuscular HGB Conc 33.7 g/dL (29.9-35.2); Mean Corpuscular Hemoglobin 32.9 pg (26.7-34.0); Mean Corpuscular Volume 97.6 fL (81.0-99.0); Platelet Count 280 10^3/uL (150-450); Red Blood Count 4.20 10^6/uL (4.20-5.40); White Blood Count 6.5 10^3/uL (4.0-11.0)
[2025-01-05 09:46] LABS: Cannabinoid Screen Urine NEGATIVE (NEGATIVE); Methamphetamines Screen Urine NEGATIVE (NEGATIVE); Tricyclic Antidepressant Urine NEGATIVE (NEGATIVE)
[2025-01-06 07:08] LABS: Rubella Antibodies, IgG 2.90 index (Immune >0.99)
[2025-01-06 12:09] LABS: Rapid Plasma Reagin, Quant Non Reactive titer (NonRea<1:1)
== END 2025-01-05 08:51 | disposition home or self-care (01) ==
LOC: LAB 08:55
PROVIDERS: PCP Family Medicine; Visit Provider Obstetrics & Gynecology
DX: Z34.01 Encounter for supervision of normal first pregnancy, first trimester (principal); N92.6 Irregular menstruation, unspecified
CPT/HCPCS: 36415; 80307; 83036; 85025; 86592; 86762; 86803; 86850; 86900; 86901; 87086; 87340; 87389

== ENCOUNTER 2025-01-23 19:25 | Emergency (ER) | payer BC, SELFPAY ==
[2025-01-23 19:38] VITALS: BP 152/92; PULSE 90; TEMP 36.7; O2SAT 100; BMI 34.7
[2025-01-23 20:50] VITALS: BP 140/88
--- NOTE | 2025-01-23 20:52 | ED_ITS ---
HPI HPI - General Adult General Chief complaint: Headache Stated complaint: 11 WKS PREG, LIGHTHEADED, HEADACHE Time Seen by Provider: 01/23/25 20:51 Source: patient Mode of arrival: walk-in History of Present Illness HPI narrative: Patient is a 24-year-old female who is G1, P0, currently [address] Olivo that presents with complaints of dizziness that started at about noon today that was relieved with eating. She then reports that she had a headache. She does report dizziness here. She did go to work and then took her blood pressure at home which was 136/109 and was concerned. She denies any issues with her thus far. Related Data Allergies Allergy/AdvReac Type Severity Reaction Status Date / Time Sulfa (Sulfonamide AdvReac Mild Rash Verified 01/23/25 19:38 Antibiotics) Opioid HPI Opioid Management Most Recent Opioid Data: Last Pain Scale 5 01/23/25, 19:38 Ur Phencyclidine Scrn, (NEGATIVE) Negative , 09:09 Review of Systems ROS Status of ROS 10 or more systems reviewed and unremark able except as noted in history and below PFSH PFSH Social History Little interest or pleasure in doing things: not at all Feeling down, depressed, or hopeless: not at all Exam Narrative Exam Narrative: General: No distress, age-appropriate Skin: Warm, dry, no pallor. No rash. Head: Normocephalic, atraumatic. Neck: Supple, non-tender. Eye: Pupils are equal, round and EOMI. No scleral icterus. Ears, Nose, Mouth, and Throat: No nasal mucosal hypertrophy. Oral mucosa is moist, no posterior oropharynx erythema, uvula is mid-line Cardiovascular: Regular Rate and Rhythm without murmur, gallop or rub. Respiratory: No accessory muscle use or respiratory distress. Lungs are clear to auscultation, no wheezing, rales or rhonchi Chest Wall: no tenderness Back: No midline thoracic or lumbar vertebral tenderness. Musculoskeletal: Full ROM of all extremities, no calf or popliteal tenderness GI: Abdomen is soft, non-distended, non tender to palpation. No masses appreciated. No rebound, guarding, or rigidity noted. Neurological: A&O x4. No cranial nerve dysfunction observed. No truncal ataxia. Moves all extremities. Sensation intact. Psychiatric: Cooperative and interactive. Normal mood and affect. Constitutional Vital Signs, click to edit/add: Last Vital Signs Temp 98.1 F 01/23/25 19:38 Pulse 90 01/23/25 19:38 Resp 18 01/23/25 19:38 BP 120/78 01/23/25 22:17 Pulse Ox 100 01/23/25 19:38 O2 Del Method Room Air 01/23/25 19:38 Documenting provider has reviewed patient's vital signs: yes Course Vital Signs Vital signs: Vital Signs Temperature 98.1 F 01/23/25 19:38 Pulse Rate 90 01/23/25 19:38 Respiratory Rate 18 01/23/25 19:38 Blood Pressure 152/92 H 01/23/25 19:38 Pulse Oximetry 100 01/23/25 19:38 Oxygen Delivery Method Room Air 01/23/25 19:38 Temperature 98.1 F 01/23/25 19:38 Pulse Rate 90 01/23/25 19:38 Respiratory Rate 18 01/23/25 19:38 Blood Pressure 120/78 01/23/25 22:17 Pulse Oximetry 100 01/23/25 19:38 Oxygen Delivery Method Room Air 01/23/25 19:38 Medical Decision Making [facility] Narrative Medical decision making narrative: 24-year-old at 11 weeks presented with dizziness relieved by eating and a subsequent headache, as well as concern for a single elevated home BP reading (136/109). In the ED, her vital signs were stable and repeat blood pressures were within normal limits. Differential included hypoglycemia, dehydration, physiologic changes of early , anemia, infection, and early hypertensive disorder of . Patient declined need for Tylenol for headache as she states it is easing up. CBC and CMP were within normal limits, and urinalysis showed no proteinuria or evidence of infection, making preeclampsia, UTI, and metabolic abnormalities unlikely. Symptoms improving with food and hydration strongly suggestive of relative hypoglycemia or normal physiologic changes of early as the cause. No red-flag neurologic findings to warrant imaging. Given reassuring labs, normal BP in the ED, absence of proteinuria, and resolution of symptoms, patient is stable for discharge with counseling on hydration, frequent small meals, and outpatient BP monitoring. Return precautions and close OB follow-up were advised. Differential Diagnosis Differential Diagnosis: Physiologic dizziness of , hypoglycemia, anemia, transient BP Lab Data Lab results reviewed: Yes I reviewed the patient's lab results Labs: Lab Results 01/23/25 01/23/25 Range/Units 21:28 21:35 WBC 10.2 (4.0-11.0) 10^3/uL RBC 3.92 L (4.20-5.40) 10^6/uL Hgb 13.2 (12.0-16.0) g/dL Hct 37.6 (36.0-48.0) % MCV 95.9 (81.0-99.0) fL MCH 33.7 (26.7-34.0) pg MCHC 35.1 (29.9-35.2) g/dL RDW 12.1 (11.0-15.0) % Plt Count 284 (150-450) 10^3/uL MPV 11.4 (9.5-13.5) fL Neut % (Auto) 65.1 (43.0-75.0) % Lymph % (Auto) 27.9 (20.5-60.0) % [place] % (Auto) 6.0 (1.7-12.0) % Eos % (Auto) 0.5 L (0.9-7.0) % Baso % (Auto) 0.2 (0.2-2.0) % Neut # (Auto) 6.6 H (1.4-6.5) 10^3/uL Lymph # (Auto) 2.8 (1.2-3.8) 10^3/uL [place] # (Auto) 0.6 (0.3-0.8) 10^3/uL Eos # (Auto) 0.1 (0.0-0.7) 10^3/uL Baso # (Auto) 0.0 (0.0-0.1) 10^3/uL Abs Immat Gran (auto) 0.03 (0.00-0.03) 10^3/uL Imm/Tot Granulo (auto) 0.3 (0.0-0.5) % Sodium 139 (136-145) mmol/L Potassium 3.8 (3.5-5.1) mmol/L Chloride 105 (98-107) mmol/L Carbon Dioxide 27.6 (21.0-32.0) mmol/L Anion Gap 10.2 BUN 12.0 (7.0-18.0) mg/dL Creatinine 0.74 (0.55-1.02) mg/dL Est GFR ( Amer) >60 (>=60 mL/min/1.73m^2) Est GFR (Non-Af Amer) >60 (>=60 mL/min/1.73m^2) BUN/Creatinine Ratio 16.2 Glucose 107 H (74-106) mg/dL Calcium 9.3 (8.5-10.1) mg/dL Total Bilirubin 0.2 (0.2-1.0) mg/dL AST 16 (15-37) U/L ALT 35 (14-59) U/L Alkaline Phosphatase 61 (46-116) U/L Total Protein 6.9 (6.4-8.2) g/dL Albumin 3.6 (3.4-5.0) g/dL Globulin 3.3 g/dL Albumin/Globulin Ratio 1.1 Urine Color Lt. yellow (YELLOW) Urine Clarity Clear (CLEAR) Urine pH 5.5 (5.0-9.0) Ur Specific [place] 1.010 (1.005-1.025) Urine Protein Negative (NEG/TRACE) mg/dL Urine Glucose (UA) Negative (NEGATIVE) mg/dL Urine Ketones Negative (NEGATIVE) mg/dL Urine Occult Blood Negative (NEGATIVE) Urine Nitrite Negative (NEGATIVE) Urine Bilirubin Negative (NEGATIVE) Urine Urobilinogen 0.2 (0.2-1.0) EU/dL Ur Leukocyte Esterase Negative (NEGATIVE) Urine RBC None seen (0-2) #/HPF Urine WBC 0-2 A (NONE SEEN) #/HPF Ur Squamous Epith Cells Rare (NONE/RARE) #/LPF Urine Crystals None seen (None Seen) #/HPF Urine Bacteria None seen (NONE SEEN) #/HPF Urine Casts None seen (NONE SEEN) #/LPF Urine Mucus None seen (NONE SEEN) Ur Culture Indicated? No Discharge Plan Discharge Chief Complaint: Headache Clinical Impression: Headache, Dizziness, Patient Disposition: Home, Self-Care Time of Disposition Decision: 21:57 Condition: Good Mode of Transportation: Private Vehicle Print Language: Lithuanian Additional Instructions: Blood Pressure Monitoring * Measure your BP twice daily (morning and evening) while seated and rested. * Keep a log of readings to bring to your OB appointment. * Contact your OB immediately if readings are >=160/110 mmHg or persistently >=140/90 mmHg with symptoms. Hydration and Nutrition * Drink 8?10 cups of water daily unless advised otherwise. * Eat regular meals or snacks to prevent dizziness. Rest and Activity * Avoid standing up quickly to prevent dizziness. * Get adequate rest and sleep. Medications * Acetaminophen (Tylenol) may be taken for headache as needed. * Avoid NSAIDs (ibuprofen, naproxen, etc.) during . Symptoms That Require Immediate Medical Attention Call 911 or return to the ER if you experience any of the following: * Severe headache or worsening headache * Vision changes (blurry vision, flashing lights, spots) * Persistent dizziness or fainting * Severe nausea or vomiting * Abdominal pain (especially right upper quadrant) * Sudden swelling of face, hands, or feet * Vaginal bleeding or fluid leakage * Blood pressure >=160/110 mmHg Follow-Up * Schedule a visit with your GENERAL CARGO CLERK (Dr. Olivo) * Bring your home BP log to your appointment. * Continue vitamins and routine care. Referrals: Rainer Olivo DO [Physician, GENERAL CARGO CLERK] - 01/30/25 Referral Note: Follow up as scheduled. LEONARDO MORALES [Primary Care Provider, Family Practice] - 1 week Discharge Date/Time: 01/23/25 22:18
[2025-01-23 21:44] LABS: Hematocrit 37.6 % (36.0-48.0); Hemoglobin 13.2 g/dL (12.0-16.0); Immature Granulocytes Abs Auto 0.03 10^3/uL (0.00-0.03); Immature Granulocytes Pct Auto 0.3 % (0.0-0.5); Lymphocytes Absolute Auto 2.8 10^3/uL (1.2-3.8); Mean Corpuscular HGB Conc 35.1 g/dL (29.9-35.2); Mean Corpuscular Hemoglobin 33.7 pg (26.7-34.0); Mean Corpuscular Volume 95.9 fL (81.0-99.0); Platelet Count 284 10^3/uL (150-450); Red Blood Count 3.92 10^6/uL (4.20-5.40); White Blood Count 10.2 10^3/uL (4.0-11.0)
[2025-01-23 21:45] LABS: Glucose Urine UA NEGATIVE (NEGATIVE)
[2025-01-23 21:53] LABS: Cast Seen? NONE SEEN #/LPF (NONE SEEN); Crystals Seen? None Seen #/HPF (None Seen); Urine Culture Indicated NO
[2025-01-23 22:00] LABS: Alanine Aminotransferase 35 U/L (14-59); Albumin Globulin Ratio 1.1; Albumin Level 3.6 g/dL (3.4-5.0); Alkaline Phosphatase 61 U/L (46-116); Anion Gap 10.2; Aspartate Amino Transferase 16 U/L (15-37); Blood Urea Nitrogen 12.0 mg/dL (7.0-18.0); Calcium 9.3 mg/dL (8.5-10.1); Carbon Dioxide 27.6 mmol/L (21.0-32.0); Chloride 105 mmol/L (98-107); Estimated GFR (African America >60 (>=60 mL/min/1.73m^2); Estimated GFR (Non-African Ame >60 (>=60 mL/min/1.73m^2); Globulin 3.3 g/dL; Glucose 107 mg/dL (74-106); Potassium 3.8 mmol/L (3.5-5.1); Sodium 139 mmol/L (136-145); Total Protein 6.9 g/dL (6.4-8.2)
[2025-01-23 22:17] VITALS: BP 120/78
== END 2025-01-23 22:18 | disposition home or self-care (01) ==
PROVIDERS: Physician Assistant; Emergency Provider Internal Medicine; PCP Family Medicine
DX: O99.891 Other specified diseases and conditions complicating pregnancy (principal); R42 Dizziness and giddiness; R51.9 Headache, unspecified; Z3A.11 11 weeks gestation of pregnancy
CPT/HCPCS: 36415; 80053; 81001; 85025; 99284; 99285

== ENCOUNTER 2025-02-27 12:08 | Outpatient (REF) | payer BC, SELFPAY ==
--- OUTSIDE RECORDS SUMMARY | 2025-02-27 08:40 | XMS_ITS | Encounter Summary ---
Author Organization [facility] Address [address] [place] [address] Care Team Providers Care Asp Net Software Developer Name Role Phone Judi Jeffrey MD Primary Care Provider [phone] Soledad Foreman NP Unavailable [phone] Reason for Visit * ReasonCommentsRoutine Visit Encounter Details DateTypeDepartmentCare Team (Latest Contact Info)Tjmwnyfaago16/22/2025 8:40 AM ESTRoutine [facility] [address] [facility] [address] Rainer Olivo DO [address] [facility] [address] [place], [facility] 16 weeks gestation of ([facility]); Second trimester ([facility]); Encounter for gynecological examination with abnormal finding Social History Tobacco UseTypesPacks/DayYears UsedDateSmoking Tobacco: NeverSmokeless [...] times a week08/19/2022How often do you attend yazidi or restorationist services?1 to 4 times per year08/19/2022 Do you belong to any clubs or organizations such as yazidi groups, unions, fraBig Stage or athletic groups, or school groups?Yes08/19/2022How often do you attend meetings of the clubs or organizations you belong to?More than 4 times per year08/19/2022re you , , , , never , or living with a partner?Patient /13/2023UDIT-CAnswerDate RecordedQ1: How often do you have a drink containing alcohol?2-4 times a month08/19/2022Q2: How many drinks containing alcohol do you have on a typical day when you are drinking?1 or Q3: How often do you have six or more drinks on one occasion?Less than wmlmfcj1808/19/2022Overall Financial Resource Strain (CARDIA) AnswerDate RecordedHow hard is it for you to pay for the very basics like food, housing, medical care, and heating?Not hard at all08/19/2022HQ-2AnswerDate RecordedPatient Health Questionnaire-2 Kbjgd134[facility] [place] of Occupational Health - Occupational Stress QuestionnaireAnswerDate RecordedDo you feel stress - tense, restless, nervous, or anxious, or unable to sleep at night because yourmind is troubled all the time - these days?To some uugffo4008/19/2022 Exercise Vital SignAnswerDate RecordedOn average, how many [...] InformationValueDate RecordedSex Assigned at BirthNot on fileLegal JroNfmqmx01/15/2023 7:46 PM EDT Gender IdentityNot on fileSexual OrientationNot on filedocumented as of this encounter Last Filed Vital Signs Vital SignReadingTime TakenCommentsBlood Isxptbap767/8202/27/2025 9:00 AM EST Pulse--Temperature--Respiratory Rate--Oxygen Saturation--Inhaled Oxygen Concentration--Vmlmnp075 kg (248 lb 12.8 oz)02/27/2025 9:00 AM ESTHeight--Body Mass Index36.7409 8:04 AM EDTdocumented in this encounter Progress Notes * Hermelinda Grove LPN - 02/27/2025 8:40 AM EST Reason for Appointment: Patient ID: Lindy Robertson is a 24 y.o. female who presents for Routine Visit Patient presents today for Annual Exam., STD Check., and Return OB appointment. MEDICATIONS Current Outpatient Medications Medication Instructions Flonase Allergy Relief 50 mcg sertraline (ZOLOFT) 25 mg, Oral, Daily ALLERGIES Allergies Allergen Reactions Sulfa Antibiotics Rash PROBLEMS Active Ambulatory Problems Diagnosis Date Noted Adjustment [...] episode of recurrent major depressive disorder 08/11/2022 CRHIS (generalized anxiety disorder) 08/11/2022 Acute severe exacerbation of mild persistent asthma (HCC) 12/22/2024 Resolved Ambulatory Problems Diagnosis Date Noted No Resolved Ambulatory Problems Past Medical History: Diagnosis Date ADHD (attention deficit hyperactivity disorder) 08/08/2022 Broken bones H/O cold sores Shingles HISTORY PAST MEDICAL HISTORY SOCIAL HISTORY Past Medical History: Diagnosis Date ADHD (attention deficit hyperactivity disorder) 08/08/2022 Anxiety 07/14/2022 Broken bones Multiple Broken bones- Fingers, Arm/Elbow- No surgeries H/O cold sores Shingles Social History Tobacco Use Smoking status: Never Smokeless tobacco: Never Substance Use Topics Alcohol use: Yes Comment: 3 or 4 drinks a month Drug use: Never FAMILY HISTORY Family History Problem Relation Name Age of Onset Goiter Mother Jazmin Polycystic ovary syndrome Mother Jazimn Hypertension Mother Jazmin Miscarriages / Stillbirths Mother Jazmin Allergies Father Sachin addiction to pain killers after an accident Hypertension Father Sachin Alcohol abuse Maternal Grandfather Gera Depression Paternal Grandmother Disne Alcohol abuse Mother's Brother Hollis SURGICAL HISTORY No past surgical history on file. REVIEW OF SYSTEMS Review of Systems: Review of Systems Constitutional: Negative. HENT: Negative. Eyes: Negative. Respiratory: Negative. Cardiovascular: Negative. Gastrointestinal: Negative. Genitourinary: Negative. Musculoskeletal: Negative. Skin: Negative. Neurological: Negative. All other systems reviewed and are negative. Hematological: Negative. Endocrine: Negative. Allergic/Immunologic: Negative. OBJECTIVE Objective: Physical Exam Constitutional: Appearance: Normal appearance. She is well-developed. Genitourinary: Vulva normal. Breasts: Breasts are soft. Right: Normal. Left: Normal. Cardiovascular: Rate and Rhythm: Normal rate and regular rhythm. Pulmonary: Effort: Pulmonary effort is normal. Breath sounds: Normal breath sounds. Abdominal: General: Bowel sounds are normal. There is no distension. Palpations: Abdomen is soft. Tenderness: There is no abdominal tenderness. There is no guarding or rebound. Musculoskeletal: General: No swelling. Normal range of motion. Right lower leg: No edema. Left lower leg: No edema. Neurological: Mental Status: She is alert and oriented to person, place, and time. Skin: General: Skin is warm and dry. Psychiatric: Mood and Affect: Mood normal. Behavior: Behavior normal. Vitals and nursing note reviewed. Exam conducted with a agribusiness professor present. Vitals: Estimated body mass index is 36.74 kg/m?? as calculated from the following: Height as of 11/21/24: 5' 9 . Weight as of this encounter: 248 lb 12.8 oz. BP: 118/82 Patient's last menstrual period was 10/22/2024. Assessment/Plan ICD-10-CM 1. 16 weeks gestation of ([facility]) Z3A.16 POCT urinalysis dipstick manually resulted Pap Smear Alpha fetoprotein, maternal Alpha fetoprotein, maternal 2. Second trimester ([facility]) Z34.92 POCT urinalysis dipstick manually resulted Pap Smear Alpha fetoprotein, maternal Alpha fetoprotein, maternal 3. Encounter for gynecological examination with abnormal finding Z01.411 Pap Smear Assessment/Plan Return OB/Annual Exam: Patient presents today for a annual exam/routine obstetrics appointment. Patient is currently [id number]. Patient states she is doing well but has complaints of nausea in the morning. Pap and cultures was obtained without difficulty and patient was given orders for anatomy scan and msAFP to be obtained. Orders Placed This Encounter Procedures Alpha fetoprotein, maternal POCT urinalysis dipstick manually resulted Follow Up: Patient is to schedule annual exam for next year and return to office in 4 weeks for OB appointment. Documented by Hermelinda Grove LPN on behalf of: Rainer Olivo DO documented in this encounter Plan of Treatment DateTypeDepartmentCare Team (Latest Contact Info)Dhqkqdycnve60/24/2025 10:00 AM ESTOffice Visit [facility] [address] [place] [address] Soledad Foreman NP [address] [place] [address] 03/30/2025 8:00 AM ESTAncillary Procedure NOMAyesha PHAN [address] [place] [address] [place] [phone] 03/30/2025 9:10 AM ESTRoutine NOMAyesha PHAN [address] [place] [address] [place] [phone] Rainer Olivo DO [address] [facility] [place] [address] 04/27/2025 8:30 AM ESTRoutine NOMAyesha PHAN [address] [place] [address] [place] [phone] Divya Ryan PA [address] [facility] [address] [place], [place] [id number] NameTypePriorityAssociated DiagnosesOrder SchedulePap SmearPathology and CytologyRoutine 16 weeks gestation of ([facility]) Second trimester ([facility]) Encounter for gynecological examination with abnormal finding Ordered: 5Alpha fetoprotein, maternalLabRoutine 16 weeks gestation of ([facility]) Second trimester ([facility]) Expected: 02/27/2025 (Approximate), Expires: 04/30/2025documented as of this encounter Goals GoalPatient Goal TypeAssociated ProblemsRecent ProgressPatient-Stated?Author Reminders Care PlanOB RemindersNoOpen Scheduling, Backgrounddocumented as of this encounter Procedures Procedure NamePriorityDate/TimeAssociated DiagnosisCommentsPOCT URINALYSIS XNCVGPXYInszzmk80/22/2025 9:01 AM EST 16 weeks gestation of ([facility]) Second trimester ([facility]) documented in this encounter Results * POCT urinalysis dipstick manually resulted (02/27/2025 9:01 AM EST)Component ValueRef RangeTest MethodAnalysis TimePerformed AtPathologist SignatureColor, UAYellowClarity, UAClearGlucose, UANegativeNegative - 2000(110) ++++ mg/dL Bilirubin, UANegativeNegative - 4(70) +++ mg/dLKetones, UANegativeNegative - 160(16) ++++ mg/dLSpec Grav, UA1.0151 - 1.03Blood, UANegativeNegative - 50 Gerardo/mcLpH, UA6.05 - 9Protein, UANegativeNegative - 2000(20) ++++ mg/dL Urobilinogen, UA0.20.2 - 12 mg/dLLeukocytes, UANegativeNegative - 500+++ Stephanie/mcLNitrite, UANegativeNegative - PositiveSpecimen (Source)Anatomical Location / LateralityCollection Method / VolumeCollection TimeReceived Time Urine02/27/2025 9:01 AM EST Narrative Authorizing ProviderResult TypeResult StatusCorey Gevoani DOPOINT OF CARE TEST ENTER/EDIT ORDERABLESFinal Result documented in this encounter Visit Diagnoses Diagnosis 16 weeks gestation of ([facility]) Second trimester ([facility]) state, incidental Encounter for gynecological examination with abnormal finding documented in this encounter Additional Health Concerns Active ProblemsNoted DateDiagnosed DateOB Hllxcjqdy46/27/2025 AssessmentNoted TimePHQ-9 Depression Total Score: 6011/21/2024 8:00 AM EDT documented as of this encounter Care Teams Team MemberRelationshipSpecialtyStart DateEnd Date Judi Jeffrey MD [address] [place] [address] PCP - GeneralFamily Medicine07/24/22 Soledad Foreman NP [address] [place] [address] PCP - Radha Rodríguez12/07/24documented as of this encounter
--- OUTSIDE RECORDS SUMMARY | 2025-02-27 12:11 | XMS_ITS | Encounter Summary ---
Author Organization [facility] Address [address] [place] [address] Care Team Providers Care Clinical Outcomes Manager Name Role Phone Judi Jeffrey MD Primary Care Provider [phone] Soledad Foreman NP Unavailable [phone] Encounter Details DateTypeDepartmentCare Team (Latest Contact Info)Ziyxoysyhox75/17/2025Travel Social History Tobacco UseTypesPacks/DayYears UsedDateSmoking Tobacco: NeverSmokeless [...] times a week08/19/2022How often do you attend holiness or jain services?1 to 4 times per year08/19/2022 Do you belong to any clubs or organizations such as holiness groups, unions, fraternal or athletic groups, or school groups?Yes08/19/2022How often do you attend meetings of the clubs or organizations you belong to?More than 4 times per year08/19/2022re you , , , , never , or living with a partner?Patient gxyjizme51/13/2023UDIT-CAnswerDate RecordedQ1: How often do you have a drink containing alcohol?2-4 times a month08/19/2022Q2: How many drinks containing alcohol do you have on a typical day when you are drinking?1 or Q3: How often do you have six or more drinks on one occasion?Less than nrvgveq8508/19/2022Overall Financial Resource Strain (CARDIA) AnswerDate RecordedHow hard is it for you to pay for the very basics like food, housing, medical care, and heating?Not hard at all08/19/2022HQ-2AnswerDate RecordedPatient Health Questionnaire-2 Nmemq638Fin[facility] [place] of Occupational Health - Occupational Stress QuestionnaireAnswerDate RecordedDo you feel stress - tense, restless, nervous, or anxious, or unable to sleep at night because yourmind is troubled all the time - these days?To some zbjjev4408/19/2022 Exercise Vital SignAnswerDate RecordedOn average, how many [...] InformationValueDate RecordedSex Assigned at BirthNot on fileLegal WhuYarhoo04/15/2023 7:46 PM EDT Gender IdentityNot on fileSexual OrientationNot on filedocumented as of this encounter Plan of Treatment DateTypeDepartmentCare Team (Latest Contact Info)Wxvvinkuohc73/24/2025 10:00 AM ESTOffice Visit [facility] [address] [place] [phone] Soledad Foreman NP [address] [place] [address] 03/30/2025 8:00 AM ESTAncillary Procedure NOMAyesha PHAN [address] [facility] [facility] [place] [phone] 03/30/2025 9:10 AM ESTRoutine MECHELLE PHAN [address] [place] [address] Rainer Olivo DO [address] [place], [place] [phone] 04/27/2025 8:30 AM ESTRoutine [facility] [address] [place] [phone] Divya Ryan PA [address] [place] [address] documented as of this encounter Goals GoalPatient Goal TypeAssociated ProblemsRecent ProgressPatient-Stated?Author Reminders Care PlanOB RemindersNoOpen Scheduling, Backgrounddocumented as of this encounter Visit Diagnoses Not on filedocumented in this encounter Additional Health Concerns Active ProblemsNoted DateDiagnosed DateOB Gtfnjmqol39/27/2025 AssessmentNoted TimePHQ-9 Depression Total Score: 6011/21/2024 8:00 AM EDT documented as of this encounter Care Teams Team MemberRelationshipSpecialtyStart DateEnd Date Juid Jeffrey MD [address] [place], [place] [phone] PCP - GeneralFamily Medicine07/24/22 Soledad Foreman NP [address] [place], [place] [id number] PCP - Radha Rodríguez12/07/24documented as of this encounter
--- OUTSIDE RECORDS SUMMARY | 2025-02-27 12:11 | XMS_ITS | Clinical Summary ---
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 Name Role Phone Judi Jeffrey MD Primary Care Provider [phone] Soledad Foreman NP Unavailable [phone] Allergies Active AllergyReactionsCriticalityNoted DateCommentsSulfa AntibioticsRashMedium 07/22/2016 Medications MedicationSigDispense QuantityRefillsLast FilledStart DateEnd DateStatus Flonase Allergy Relief 50 MCG/ACT nasal spray Irrigate with 50 mcg as ltkirtfj65/30/2024Active sertraline (Zoloft) 25 MG tablet Indications:CHRIS (generalized anxiety disorder),Mild episode of recurrent major depressive disorderTake 1 tablet (25 mg) by mouth Daily 30 tablet 503/6Active Active Problems ProblemNoted DateDiagnosed DateAcute severe exacerbation of mild persistent nrnoef3912/22/2024Mild episode of recurrent major depressive nliseltn45/05/2023 Assessment & Plan (11/21/2024 9:02 AM EDT): [...] disorder with depressed mood07/09/2022llergic rhinitis due to mhemnzpc50/03/2023llergic rhinitis due to animal (cat) (dog) hair and dander 07/09/20228983Zkvkcgy30/03/1219Agngmeswhpwq96/03/6644Fjiexmxch23/03/2023Iron deficiency ivaenm5507/09/2022Irregular sgemrs9207/09/2022Menstrual lqjfwz4407/09/2022 Menstrual migraine without status migrainosus, not kbjmyfflwke01/03/2023 Orthostatic /03/2023atellofemoral disorder of left knee07/09/2022 Patellofemoral disorders, right knee07/09/2022Menstrual zursnwfk51/30/2019 Frontal ungvrsgpa26/20/2018Allergic rhinitis due to animal hair and dander 10/26/2017Allergic rhinitis caused by ccmydqpl32/30/2018Allergic rhinitis 10/05/2017Disorder of right patellofemoral joint09/19/2016Menstrual migraine 07/16/2016Estimated Date of SzacvdqvFxixqmkqXkk94/07/2026Based on Ultrasound, FHR- 153 Encounters DateTypeDepartmentCare OdvjZefwjgakdpv00/22/2025 8:40 AM ESTRoutine [facility] [place] [address] Rainer Olivo DO 16 weeks gestation of ([facility]); Second trimester ([facility]); Encounter for gynecological examination with abnormal /22/2025Bamboo flowsheet [facility] [place] [address] Rainer Olivo, DO 02/22/20255829Ghpirc54/24/2025 9:50 AM ESTRoutine [facility] [place] [address] Rainer Olivo, DO First trimester ([facility]); 12 weeks gestation of ([facility]); Iron deficiency anemia, unspecified iron deficiency anemia type; H/O cold sores01/30/2025amboo flowsheet [facility] OBGINNYN [address] [facility] [place] [address] Ranier Olivo DO 01/26/2025Patient Outreach [facility] [address] [place] [address] Lora Murrieta LSW 01/24/2025Telephone [facility] OBGYMalena [address] [facility] [place] [phone] Rebeca Ma MA 01/23/20253372Fvjbrk62/30/2025linisync Result Encounter [facility] External Department Unsolicited Rainer Olivo DO 12/29/2024 1:00 PM EDTInitial [facility] [place] [phone] GA: 7w4d12/29/2024 12:30 PM EDTAncillary Procedure [facility] Del PHAN [address] [facility] [place] [address] Missed menses; Positive urine test ([facility])12/25/20247222Tgxier54/16/2025Travel 12/06/2024Telephone [facility] [address] [facility] [place] [phone] Jacque Rogers MA 12/02/2024Orders Only [facility] [address] [place] [address] Soledad Foreman NP CHRIS (generalized anxiety disorder) (Primary Dx); Mild episode of recurrent major depressive /26/2025Telephone [facility] [address] [place] [address] Judi Jeffrey MD from Last 3 Months Immunizations ImmunizationAdministration DatesNext DueDTaP / IPV2001,2001, 2001DTaP, Vrenbdiynto31/10/2007,08/22/2002HPV 9-Bdwgaj1202/29/2016, 10/22/2015,08/22/2015Hep A, ped/adol, 2 dose02/29/2016,08/22/2015Hep B, Adolescent or Osxkdifrf43/10/2021,12/12/2020,01/14/2002,2001,2001Hep B, adult06/12/2021HiB, xatpwxmmhxr45/11/2002,2001,2001Hib / Hep B 08/22/2002IPV08/22/2002Influenza, injectable, quadrivalent, preservative free 11/23/2021,02/03/2021,12/10/2019,01/23/2017Influenza, seasonal, injectable 12/31/2013,03/25/2013Influenza, seasonal, injectable, preservative free 12/24/2011,12/18/2010MMR10/16/2006,06/03/2002Meningococcal NLY5A3510/05/2017, 11/27/2014Novel elsuipkzs-V7H1-25, preservative-free02/17/2009,01/04/2009PPD Test10/01/2020Tdap09/01/2013 Family History Medical HistoryRelationNameCommentsAllergiesFatherJohnaddiction to [...] times a week08/19/2022How often do you attend jew or gnosticist services?1 to 4 times per year08/19/2022 Do you belong to any clubs or organizations such as jew groups, unions, fraternal or athletic groups, or school groups?Yes08/19/2022How often do you attend meetings of the clubs or organizations you belong to?More than 4 times per year08/19/2022re you , , , , never , or living with a partner?Patient kzmjfaxn66/13/2023UDIT-CAnswerDate RecordedQ1: How often do you have a drink containing alcohol?2-4 times a month08/19/2022Q2: How many drinks containing alcohol do you have on a typical day when you are drinking? or Q3: How often do you have six or more drinks on one occasion?Less than wqkbfko7808/19/2022Overall Financial Resource Strain (CARDIA) AnswerDate RecordedHow hard is it for you to pay for the very basics like food, housing, medical care, and heating?Not hard at all08/19/2022HQ-2AnswerDate RecordedPatient Health Questionnaire-2 Fiein676[facility] [place] of Occupational Health - Occupational Stress QuestionnaireAnswerDate RecordedDo you feel stress - tense, restless, nervous, or anxious, or unable to sleep at night because yourmind is troubled all the time - these days?To some rrvomu1608/19/2022 Exercise Vital SignAnswerDate RecordedOn average, how many [...] or the highest degree you have received?10th grade3Estimated Date of DeliveryCommentsYes 08/13/2025ased on Ultrasound, FHR- 153Sex and Gender InformationValueDate RecordedSex Assigned at BirthNot on fileLegal FijQvbwuo99/15/2023 7:46 PM EDT Gender IdentityNot on fileSexual OrientationNot on file Last Filed Vital Signs Vital SignReadingTime TakenCommentsBlood Djvfuood864/8202/27/2025 9:00 AM EST Aluvw988311/21/2024 8:04 AM ULYWvhmczhzkwq43.3 ??C (97.3 ??F)10/26/2024 5:46 PM EDTRespiratory Xwce656511/21/2024 8:04 AM EDTOxygen Zjcpflcbvp35%11/21/2024 8:04 AM EDTInhaled Oxygen Concentration--Yvhhks121 kg (248 lb 12.8 oz)02/27/2025 9:00 AM FZQXjwwvf167.3 cm (5' 9 )11/21/2024 8:04 AM EDTBody Mass Index36.7411/21/2024 8:04 AM EDT Plan of Treatment DateTypeDepartmentCare Team (Latest Contact Info)Cnjcvoeujfn71/24/2025 10:00 AM ESTOffice Visit [facility] [address] [place] [phone] Soledad Foreman NP [address] [place] [address] 03/30/2025 8:00 AM ESTAncillary Procedure MECHELLE PHAN [address] [place] [address] [place] [address] 03/30/2025 9:10 AM ESTRoutine MECHELLE PHAN [address] [facility] [place] [address] Rainer Olivo DO [address] [facility] [address] [place], [place] [phone] 04/27/2025 8:30 AM ESTRoutine [facility] [address] [place] [phone] Divya Ryan PA [address] [place] [address] Health MaintenanceDue DateLast DoneCommentsPneumococcal Vaccine: Pediatrics (0 to 5 Years) and At-Risk Patients (6 to 64 Years) (1 of 2 - PCV)1COVID- 19 Vaccine ( season)5104/05/2020, 07/07/2020, 06/11/2020 Influenza DmfeyyqHbjvfdroy34/27/2025, 11/23/2021, 02/03/2021, Additional history exists Goals GoalPatient Goal TypeAssociated ProblemsRecent ProgressPatient-Stated?Author Reminders Care PlanOB RemindersNoOpen Scheduling, Background Procedures Procedure NamePriorityDate/TimeAssociated DiagnosisCommentsPOCT URINALYSIS MDEWNLKKUdmtnmm79/22/2025 9:01 AM EST 16 weeks gestation of ([facility]) Second trimester ([facility]) POCT URINALYSIS OACOTBKGZnsccsj71/24/2025 10:05 AM EST First trimester ([facility]) HBSAG WQZXKMRjkvduc63/30/2025 9:18 AM EDT RAPID PLASMA REAGIN, EHZWYCcestyh53/30/2025 9:18 AM EDT HCV ANTIBODY RFX TO QUANT TTMHazidtd62/30/2025 9:18 AM EDT ALL RUBELLA IGG XRQkxzlok45/30/2025 9:18 AM EDT HIV AB/P24 AG WITH XWCEUYQdapuvz33/30/2025 9:18 AM EDT ALL TYPE AND TBWRLKTfeksgr45/30/2025 9:18 AM EDT MLR HEMOGLOBIN R2CJofffre88/30/2025 9:18 AM EDT ALL CBC WITH AUTO IXMUOeepfli30/30/2025 9:18 AM EDT URINE CULTURE, IWBHDISMapkwox05/30/2025 9:09 AM EDT TBH DRUG SCREEN RAPID (URINE)Pnxudan4401/05/2025 9:09 AM EDT POCT URINALYSIS EECACDWOFqofslf97/23/2025 1:21 PM EDT Missed menses POCT , DGYVAGjakwkq27/23/2025 1:21 PM EDT Missed menses US OB QQEQSTOLZBYMOxemldg32/23/2025 12:48 PM EDT Missed menses Positive urine test ([facility]) from Last 3 Months Results * POCT urinalysis dipstick manually resulted (02/27/2025 9:01 AM EST) Only the most recent of3 resultswithin the time period is included. ComponentValueRef RangeTest MethodAnalysis TimePerformed AtPathologist Signature Color, UAYellowClarity, UAClearGlucose, UANegativeNegative - 2000(110) ++++ mg/dLBilirubin, UANegativeNegative - 4(70) +++ mg/dLKetones, UANegativeNegative - 160(16) ++++ mg/dLSpec Grav, UA1.0151 - 1.03Blood, UANegativeNegative - 50 Gerardo/mcLpH, UA6.05 - 9Protein, UANegativeNegative - 2000(20) ++++ mg/dL Urobilinogen, UA0.20.2 - 12 mg/dLLeukocytes, UANegativeNegative - 500+++ Stephanie/mcL Nitrite, UANegativeNegative - PositiveSpecimen (Source)Anatomical Location / LateralityCollection Method / VolumeCollection TimeReceived PlhcAyznt44/22/2025 9:01 AM EST Narrative Authorizing ProviderResult TypeResult StatusCorey Geovani DOPOINT OF CARE TEST ENTER/EDIT ORDERABLESFinal Result * HBSAG SCREEN (01/05/2025 9:18 AM EDT)ComponentValueRef RangeTest Method Analysis TimePerformed AtPathologist SignatureHBSAG SCREENNegativeNegativeTBH Comment: Performed at: ??[address] ??[id number] [employer] Processing: Carmelo Vail PhD, Phone: ??[phone] Specimen (Source)Anatomical Location / LateralityCollection Method / Volume Collection TimeReceived Time01/05/2025 9:18 AM EDT1 9:21 AM EDT Narrative [facility] - 01/06/2025 12:09 PM EDT Authorizing ProviderResult TypeResult StatusCorey Geovani DOLAB BLOOD ORDERABLES Final ResultPerforming OrganizationAddressCity/State/ZIP CodePhone Number [facility] * RAPID PLASMA REAGIN, QUANT (01/05/2025 9:18 AM EDT)ComponentValueRef RangeTest MethodAnalysis TimePerformed AtPathologist SignatureRAPID PLASMA REAGIN, QUANT Non ReactiveNonRea<1:1 titerTBHComment: Please Note: This test does not meet current guidelines for screening and diagnosis of syphilis. This test is intended for following treatment response in patients being treated for syphilis infection. To screen for syphilis infection, a reflex cascade that includes both RPR and a treponema-specific assay should be utilized, such as Treponema pallidum (Syphilis) Screening Meridian (702544) or Rapid Plasma Reagin (RPR) Test With Reflex to Quantitative RPR and Confirmatory Treponema pallidum Antibodies (111681). Performed at: ??[facility] [address] ??[id number] [employer] Work[employer] Processing: Carmelo Vail PhD, Phone: ??[phone] Specimen (Source)Anatomical Location / LateralityCollection Method / Volume Collection TimeReceived Time01/05/2025 9:18 AM EDT1 9:21 AM EDT Narrative [facility] - 01/06/2025 12:09 PM EDT Authorizing ProviderResult TypeResult StatusCorey Geovani DOLAB BLOOD ORDERABLES Final ResultPerforming OrganizationAddressty/State/ZIP CodePhone Number [facility] * HIV AB/P24 AG WITH REFLEX (01/05/2025 9:18 AM EDT)ComponentValueRef RangeTest MethodAnalysis TimePerformed AtPathologist SignatureHIV AB/P24 AG SCREENNon ReactiveNon ReactiveTBHComment: HIV-1/HIV-2 antibodies and HIV-1 p24 antigen were NOT detected. There is no laboratory evidence of HIV infection. HIV Negative Performed at: ??[address] ??[id number] [employer]: Carmelo Vail PhD, Phone: ??[phone] Specimen (Source)Anatomical Location / LateralityCollection Method / Volume Collection TimeReceived Time01/05/2025 9:18 AM EDT1 9:21 AM EDT Narrative [facility] 01/06/2025 2:07 AM EDT Authorizing ProviderResult TypeResult StatusCorey Geovani DOLAB BLOOD ORDERABLES Final ResultPerforming OrganizationAddressCity/State/ZIP CodePhone Number [facility] * HCV ANTIBODY RFX TO QUANT PCR (01/05/2025 9:18 AM EDT)ComponentValueRef Range Test MethodAnalysis TimePerformed AtPathologist SignatureHCV ABNon ReactiveNon ReactiveTBHINTERPRETATION:Comment.TBHComment: Not infected with HCV unless early or acute infection is suspected (which may be delayed in an immunocompromised individual), or other evidence exists to indicate HCV infection. Performed at: ??[address] ??[id number] [employer] Work[employer]: Carmelo Vail PhD, Phone: ??[phone] Specimen (Source)Anatomical Location / LateralityCollection Method / Volume Collection TimeReceived Time01/05/2025 9:18 AM EDT1 9:21 AM EDT Narrative [facility] 01/06/2025 7:08 AM EDT Authorizing ProviderResult TypeResult StatusCorey Geovani DOLAB BLOOD ORDERABLES Final ResultPerforming OrganizationAddressCity/State/ZIP CodePhone Number [facility] * MLR HEMOGLOBIN A1C (01/05/2025 9:18 AM EDT)ComponentValueRef RangeTest Method Analysis TimePerformed AtPathologist SignatureGLYCOHEMOGLOBIN A1C5.04.5 - 6.2 %TBHComment: ADA RECOMMENDED LIMIT 4.0 - 6.0 ADA THERAPEUTIC TARGET < 7.0 ACTION SUGGESTED > 7.0 ESTIMATED AVERAGE AIYWHZG79sm/dLTBHSpecimen (Source)Anatomical Location / LateralityCollection Method / VolumeCollection TimeReceived Time01/05/2025 9:18 AM EDT1 9:21 AM EDT Narrative [facility] - 01/05/2025 10:07 AM EDT Authorizing ProviderResult TypeResult StatusCorey Geovani DOCLINISYNCFinal Result Performing OrganizationAddPenn Presbyterian Medical Centerty/State/ZIP CodePhone Number [facility] * ALL TYPE AND SCREEN (01/05/2025 9:18 AM EDT)ComponentValueRef RangeTest Method Analysis TimePerformed AtPathologist SignatureBLOOD TYPEA PositiveTBHANTIBODY SCREENNEGATIVETBHSpecimen (Source)Anatomical Location / LateralityCollection Method / VolumeCollection TimeReceived Time01/05/2025 9:18 AM EDT1 9:21 AM EDT Narrative [facility] - 01/05/2025 11:23 AM EDT [facility] , ?? Authorizing ProviderResult TypeResult StatusCorey Geovani DOCLINISYNCFinal Result Performing OrganizationAddCommunity [facility] Systems/State/ZIP CodePhone Number [facility] * ALL RUBELLA IGG AB (01/05/2025 9:18 AM EDT)ComponentValueRef RangeTest Method Analysis TimePerformed AtPathologist SignatureRUBELLA ANTIBODIES, IGG2.90 Immune >0.99 indexTBHComment: Non-immune <0.90 ?Equivocal ??0.90 - 0.99 Immune >0.99 Performed at: ?? - [facility] [address] [place], [place] ??[id number] [employer] Work[employer] Processing: Carmelo Vail PhD, Phone: ??[phone] Specimen (Source)Anatomical Location / LateralityCollection Method / Volume Collection TimeReceived Time01/05/2025 9:18 AM EDT1 9:21 AM EDT Narrative [facility] - 01/06/2025 7:08 AM EDT Authorizing ProviderResult TypeResult StatusCorey Geovani DOCLINISYNCFinal Result Performing OrganizationAddressCity/State/ZIP CodePhone Number [facility] * ALL CBC WITH AUTO DIFF (01/05/2025 9:18 AM EDT)ComponentValueRef RangeTest MethodAnalysis TimePerformed AtPathologist SignatureTBH WBC6.54.0 - 11.0 10 3/uLTBHTBH RBC4.204.20 - 5.40 10 6/uLTBHTBH HGB13.812.0 - 16.0 g/dLTBHTBH HCT 41.036.0 - 48.0 %TBHTBH MCV97.681.0 - 99.0 fLTBHTBH MCH32.926.7 - 34.0 pgTBH TBH MCHC33.729.9 - 35.2 g/dLTBHTBH RDW12.011.0 - 15.0 %TBHTBH SXS633194 - 450 10 3/uLTBHTBH MPV11.39.5 - 13.5 fLTBHNEUTROPHILS PERCENT AUTO62.743.0 - 75.0 % TBHLYMPHOCYTES PERCENT AUTO29.520.5 - 60.0 %TBHMONOCYTES PERCENT AUTO6.41.7 - 12.0 %TBHTBH EO %0.90.9 - 7.0 %TBHBASOPHILS PERCENT AUTO0.30.2 - 2.0 %TBH IMMATURE GRANULOCYTES PCT AUTO0.20.0 - 0.5 %TBHNEUTROPHILS ABSOLUTE AUTO4.11.4 - 6.5 10 3/uLTBHLYMPHOCYTES ABSOLUTE AUTO1.91.2 - 3.8 10 3/uLTBHMONOCYTES ABSOLUTE AUTO0.40.3 - 0.8 10 3/uLTBHTBH EO #0.10.0 - 0.7 10 3/uLTBHBASOPHILS ABSOLUTE AUTO0.00.0 - 0.1 10 3/uLTBHIMMATURE GRANULOCYTES ABS AUTO0.010.00 - 0.03 10 3/uLTBHSpecimen (Source)Anatomical Location / LateralityCollection Method / VolumeCollection TimeReceived Time01/05/2025 9:18 AM EDT1 9:21 AM EDT Narrative [facility] - 01/05/2025 9:46 AM EDT Authorizing ProviderResult TypeResult StatusCorey Geovani DOCLINISYNCFinal Result Performing OrganizationAddressCity/State/ZIP CodePhone Number [facility] * URINE CULTURE, ROUTINE (01/05/2025 9:09 AM EDT)ComponentValueRef RangeTest MethodAnalysis TimePerformed AtPathologist SignatureURINE CULTURE, ROUTINE ??Urine Culture, Routine TBHURINE CULTURE, ROUTINEMixed urogenital floraTBHURINE CULTURE, ROUTINELess than 10,000 colonies/mLTBHURINE CULTURE, ROUTINEPerformed at: [facility] LabAscension River District HospitalTBHURINE CULTURE, [id number] [place], [place] [id number] CULTURE, ROUTINELab Director: Carmelo Vail PhD, Phone: [phone] Specimen (Source)Anatomical Location / LateralityCollection Method / Volume Collection TimeReceived Time01/05/2025 9:09 AM EDT1 9:21 AM EDT Narrative [facility] - 01/06/2025 10:16 PM EDT Authorizing ProviderResult TypeResult StatusCorey Geovani DOLAB BLOOD ORDERABLES Final ResultPerforming OrganizationAddCommunity Health Systems/[facility] CodePhone Number [facility] * TBH DRUG SCREEN RAPID (URINE) (01/05/2025 9:09 AM EDT)ComponentValueRef Range Test MethodAnalysis TimePerformed AtPathologist SignatureCANNABINOID SCREEN URINENEGATIVENEGATIVETBHPHENCYCLIDINE SCREEN URINENEGATIVENEGATIVETBHCOCAINE SCREEN URINENEGATIVENEGATIVETBHMETHAMPHETAMINES SCREEN URINENEGATIVENEGATIVE TBHOPIATE SCREEN URINENEGATIVENEGATIVETBHAMPHETAMINE SCREEN URINENEGATIVE NEGATIVETBHBENZODIAZEPINES SCREEN URINENEGATIVENEGATIVETBHTRICYCLIC ANTIDEPRESSANT URINENEGATIVENEGATIVETBHMETHADONE SCREEN URINENEGATIVENEGATIVE TBHBARBITURATES SCREEN URINENEGATIVENEGATIVETBHOXYCODONE SCREEN URINENEGATIVE NEGATIVETBHBUPRENORPHINE SCREEN URINENEGATIVENEGATIVETBHComment: DRUG CLASS TEST SYSTEM CUT-OFF CONCENTRATIONS ARE FOLLOWS: AMP (Amphetamine): 500 ng/mL BAR (Barbiturates): 200 ng/mL BZO (Benzodiazepines): 150 ng/mL BUP (Buprenorphine): 10 ng/mL SHARLA (Cocaine): 150 ng/mL mAMP (Methamphetamine): 500 ng/mL MTD (Methadone): 200 ng/mL OPI (Opiates): 100 ng/mL OXY (Oxycodone): 100 ng/mL PCP (Phencyclidine): 25 ng/mL THC (Cannabinoids): 50 ng/mL TCA (Trycyclic Antidepressants): 300 ng/mL Specimen (Source)Anatomical Location / LateralityCollection Method / Volume Collection TimeReceived Time01/05/2025 9:09 AM EDT1 9:21 AM EDT Narrative [facility] - 01/05/2025 9:46 AM EDT Authorizing ProviderResult TypeResult StatusCorey Geovani DOCLINISYNCFinal Result Performing OrganizationAddressCity/State/ZIP CodePhone Number [facility] * (ABNORMAL) POCT , urine manually resulted [...] Sin MD Authorizing ProviderResult TypeResult StatusCorey Geovani DOI OB US PROCEDURES Final Result from Last 3 Months Additional Health Concerns Active ProblemsNoted DateDiagnosed DateOB Elwugorhn63/27/2025 Insurance Care Teams Team MemberRelationshipSpecialtyStart DateEnd Date Judi Jeffrey MD [address] [place], [place] [phone] PCP - GeneralFamily Medicine07/24/22 Soledad Foreman NP [address] [place] [address] PCP - Radha Rodríguez12/07/24
--- OUTSIDE RECORDS SUMMARY | 2025-02-27 12:11 | XMS_ITS | Encounter Summary ---
Author Organization [facility] Address [address] [place] [address] Care Team Providers Care Spring Clipper Name Role Phone Judi Jeffrey MD Primary Care Provider [phone] Soledad Foreman NP Unavailable [phone] Encounter Details DateTypeDepartmentCare Team (Latest Contact Info)Kjsdwxyriwx50/22/2025Bamboo flowsheet [facility] [address] [place] [address] Rainer Olivo DO [address] [place], [facility] Social History Tobacco UseTypesPacks/DayYears UsedDateSmoking Tobacco: NeverSmokeless [...] times a week08/19/2022How often do you attend samaritan or scientology services?1 to 4 times per year08/19/2022 Do you belong to any clubs or organizations such as samaritan groups, unions, [employer] or athletic groups, or school groups?Yes08/19/2022How often do you attend meetings of the clubs or organizations you belong to?More than 4 times per year08/19/2022re you , , , , never , or living with a partner?Patient obdvzgnm01/13/2023UDIT-CAnswerDate RecordedQ1: How often do you have a drink containing alcohol?2-4 times a month08/19/2022Q2: How many drinks containing alcohol do you have on a typical day when you are drinking?1 or Q3: How often do you have six or more drinks on one occasion?Less than bmnauuy0708/19/2022Overall Financial Resource Strain (CARDIA) AnswerDate RecordedHow hard is it for you to pay for the very basics like food, housing, medical care, and heating?Not hard at all08/19/2022HQ-2AnswerDate RecordedPatient Health Questionnaire-2 Gykys142[facility] [place] of Occupational Health - Occupational Stress QuestionnaireAnswerDate RecordedDo you feel stress - tense, restless, nervous, or anxious, or unable to sleep at night because yourmind is troubled all the time - these days?To some fluadp2708/19/2022 Exercise Vital SignAnswerDate RecordedOn average, how many [...] InformationValueDate RecordedSex Assigned at BirthNot on fileLegal IxiEulutq62/15/2023 7:46 PM EDT Gender IdentityNot on fileSexual OrientationNot on filedocumented as of this encounter Plan of Treatment DateTypeDepartmentCare Team (Latest Contact Info)Mlssebgvdah61/24/2025 10:00 AM ESTOffice Visit [facility] [address] [place] [phone] Soledad Foreman NP [address] [place], [place] [id number] 03/30/2025 8:00 AM ESTAncillary Procedure NOMAyesha PHAN [address] [place] [address] 03/30/2025 9:10 AM ESTRoutine NOMAyesha PHAN [address] [place] [address] Rainer Olivo DO [address] [facility] [address] [place], [place] [id number] 04/27/2025 8:30 AM ESTRoutine [facility] [address] [place] [address] Divya Ryan PA [address] [place] [address] documented as of this encounter Goals GoalPatient Goal TypeAssociated ProblemsRecent ProgressPatient-Stated?Author Reminders Care PlanOB RemindersNoOpen Scheduling, Backgrounddocumented as of this encounter Visit Diagnoses Not on filedocumented in this encounter Additional Health Concerns Active ProblemsNoted DateDiagnosed DateOB Tzneolels43/27/2025 AssessmentNoted TimePHQ-9 Depression Total Score: 6011/21/2024 8:00 AM EDT documented as of this encounter Care Teams Team MemberRelationshipSpecialtyStart DateEnd Date Judi Jeffrey MD [address] [place] [address] PCP - GeneralFamily Medicine07/24/22 Soledad Foreman NP [address] [facility], [place] [id number] PCP - [place] Xbjevljrsa64/1/25documented as of this encounter
[2025-03-01 12:08] LABS: Age Gdln ACOG Testing Note (.); IGP, rfx Aptima HPV ASCU Note (.)
== END 2025-02-27 12:09 | disposition home or self-care (01) ==
LOC: LAB 12:08
PROVIDERS: PCP Family Medicine; Visit Provider Obstetrics & Gynecology
DX: Z01.411 Encounter for gynecological examination (general) (routine) with abnormal findings (principal)
CPT/HCPCS: 88175